=== PATIENT | male | born 1945 | race Caucasian/White ===

== ENCOUNTER 2023-02-05 08:13 | Day surgery (SDC) | payer MEDICARE, OTHER ==
[~2023-02-05] VITALS: Ht 175.3 cm; Wt 110.0 kg
[~2023-02-05 08:13] MED LIST: CLOP75 PO; Crestor40 MG PO; FISH OIL 1,2001 EAC7 PO; FURO40 PO; GLIP10 PO; HUMULIN N100 UNIT/4 SC; LISI5 PO; METF500 PO; PANT20 PO; Vitamin C100 M1 PO; WARF5 PO
--- NOTE | 2023-02-05 08:42 | NUR ---
History, Chart, Medications and Allergies reviewed before start of procedure. Pre-Op teaching done. Pt verbalizes understanding. Patient confirms NPO status and agrees with scheduled surgery. Patient states colon prep results translucent yellow without sediment. Patient States Post-Procedure ride home has been arranged.
[2023-02-05 08:47] VITALS: BP 121/68
--- NOTE | 2023-02-05 09:42 | NUR ---
02/05/23 0942 Mary Jimenez HISTORY, CHART, MEDICATIONS AND ALLERGIES REVIEWED BEFORE START OF PROCEDURE. PATIENT CONFIRMS NPO STATUS AND AGREES WITH SCHEDULED PROCEDURE. 3-LEAD EKG REVIEWED WITH PHYSICIAN PRIOR TO START OF PROCEDURE. MONITOR INTACT WITH CONTINUOUS PULSE OXIMETRY,CAPNOGRAPHY, 3-LEAD EKG, INTERMITTENT BP. SUPPLEMENTAL O2 TO BE TITRATED THROUGHOUT PROCEDURE TO MAINTAIN O2 SATURATION ABOVE 90%. PATIENT DETERMINED TO BE ASA APPROPRIATE FOR PROPOFOL SEDATION PRIOR TO START OF PROCEDURE BY
[2023-02-05 10:05] VITALS: BP 130/82
--- NOTE | 2023-02-05 10:09 | NUR ---
REPORT RECEIVED FROM CARINE VANCE RN. VSS. PT ABLE TO REPOSITION SELF IN BED. PT REQUESTING PO FLUIDS AND TOLERATING THEM WELL. PT DENIES PAIN, NAUSEA, OR DISCOMFORT. AT BEDSIDE.
[2023-02-05 10:18] VITALS: BP 128/85
--- NOTE | 2023-02-05 10:34 | NUR ---
Patient up to Ambulate independently. Gait steady. VSS. Discharge instructions reviewed with patient. Patient verbalizes understanding. Copy given to patient to take home. Patient States Post-Procedure ride home has been arranged. Discharged via PERSONAL wheelchair to private car for ride home WITH DISCHARGE VOLUNTEER. PT BELONGINGS RETURNED TO PT.
== END 2023-02-05 10:37 | disposition home or self-care (01) ==
LOC: ORSCMMR 08:13 → ORD 09:00 → ORSCMMR 09:00
PROVIDERS: Internal Medicine Gastroenterology
PROC: 0DBN8ZX Excision of Sigmoid Colon, Via Natural or Artificial Opening Endoscopic, Diagnostic (ICD-10-PCS; principal; 2023-02-05 09:00)
PROC: 0DBP8ZX Excision of Rectum, Via Natural or Artificial Opening Endoscopic, Diagnostic (ICD-10-PCS; principal; 2023-02-05 09:00)
DX: K62.5 Hemorrhage of anus and rectum (principal); C20 Malignant neoplasm of rectum; K63.5 Polyp of colon; E11.9 Type 2 diabetes mellitus without complications; K21.9 Gastro-esophageal reflux disease without esophagitis; I10 Essential (primary) hypertension; E78.00 Pure hypercholesterolemia, unspecified; Z95.0 Presence of cardiac pacemaker; I25.10 Atherosclerotic heart disease of native coronary artery without angina pectoris; Z86.718 Personal history of other venous thrombosis and embolism; Z79.02 Long term (current) use of antithrombotics/antiplatelets; Z79.01 Long term (current) use of anticoagulants; Z79.84 Long term (current) use of oral hypoglycemic drugs; Z79.899 Other long term (current) drug therapy
CPT/HCPCS: 82947; 88305; J2250; J2704; J3010; J7120

== ENCOUNTER → 2023-06-07 | Outpatient (CLI) | payer MEDICARE, OTHER ==
[2023-06-07 17:33] LABS: Appearance, Urine Clear (Clear); Bilirubin, Urine Neg (Neg); Blood, Urine 1+ (Neg); Color, Urine Yellow (P-Yellow); Glucose Qualitative, Urine 4+ (Neg); Ketones, Urine Neg (Neg); Leukocyte Esterase, Urine Neg (Neg); Nitrite, Urine Neg (Neg); Protein, Urine 2+ (Neg); Specific Gravity, Urine 1.015 (1.003-1.022); Urobilinogen, Urine NORM (Normal)
[2023-06-07 17:45] LABS: Bacteria Rare /hpf; Squamous Epithelial Cells Rare /hpf (Few)
[2023-06-07 17:46] LABS: Hyaline Casts 0-2 /lpf (0-2)
== END ==
LOC: LAB SHORT 15:00 → LAB 15:00
PROVIDERS: Radiology Radiation Oncology
DX: Z51.0 Encounter for antineoplastic radiation therapy (principal); C20 Malignant neoplasm of rectum
CPT/HCPCS: 81001

== ENCOUNTER → 2023-07-02 | Outpatient (CLI) | payer MEDICARE, OTHER | LOC: LAB SHORT 12:00 → LAB 12:00 | DX: R30.0 Dysuria (principal) | CPT/HCPCS: 87086 ==

== ENCOUNTER 2023-10-15 16:24 | Emergency (ER) | payer MEDICARE, OTHER ==
[~2023-10-15] VITALS: Ht 182.9 cm; Wt 65.8 kg
[2023-10-15 20:38] LABS: BASOPHILS ABSOLUTE AUTO 0.07 K/mm3 (0.00-0.23); BASOPHILS PERCENT AUTO 1 % (0-2); EOSINOPHILS ABSOLUTE AUTO 0.24 K/mm3 (0.00-0.68); EOSINOPHILS PERCENT AUTO 3 % (0-6); Hematocrit 40.8 % (37.0-53.0); Hemoglobin 14.7 g/dL (13.5-17.5); IMMATURE GRAN ABSOLUTE AUTO 0.04 K/mm3 (0.00-0.10); IMMATURE GRAN PERCENT AUTO 1 % (0-1); LYMPHOCYTES ABSOLUTE AUTO 1.08 K/mm3 (0.84-5.20); LYMPHOCYTES PERCENT AUTO 13 % (21-46); MONOCYTES ABSOLUTE AUTO 0.82 K/mm3 (0.16-1.47); MONOCYTES PERCENT AUTO 10 % (4-13); Mean Corpuscular HGB 33.5 pg (26.0-34.0); Mean Corpuscular Volume 93 fL (80-100); Mean Platelet Volume 10.3 fL (9.1-12.4); NEUTROPHILS ABSOLUTE AUTO 6.41 K/mm3 (1.96-9.15); NEUTROPHILS PERCENT AUTO 74 % (41-73); Platelet Count 221 K/mm3 (150-400); RDW Coefficient Variation 13.2 % (11.7-14.2); RDW Standard Deviation 45.1 fL (35.1-46.3); Red Blood Cell Count 4.39 M/mm3 (4.30-5.90); White Blood Cell Count 8.66 K/mm3 (4.00-11.30)
[2023-10-15 20:51] LABS: Albumin, Blood 3.9 g/dL (3.4-5.0); Bilirubin, Total 0.4 mg/dL (0.1-1.0); Bun/Creatinine Ratio 32.4 (12.0-20.0); Calcium, Blood 9.2 mg/dL (8.5-10.1); Creatinine, Blood 0.99 mg/dL (0.60-1.20); Potassium, Blood 3.9 mmol/L (3.5-5.5); Total Protein, Blood 7.9 g/dL (6.4-8.2)
[2023-10-15 22:24] VITALS: BP 138/91
== END 2023-10-15 22:25 | disposition home or self-care (01) ==
LOC: ER 16:24
PROVIDERS: Physician Assistant
DX: I44.7 Left bundle-branch block, unspecified (principal); Z79.02 Long term (current) use of antithrombotics/antiplatelets; Z79.4 Long term (current) use of insulin; Z79.84 Long term (current) use of oral hypoglycemic drugs; Z79.899 Other long term (current) drug therapy; Z95.0 Presence of cardiac pacemaker; I10 Essential (primary) hypertension; E11.9 Type 2 diabetes mellitus without complications; K21.9 Gastro-esophageal reflux disease without esophagitis
CPT/HCPCS: 71046; 80053; 84484; 85025; 93005; 93010; 99285-25

== ENCOUNTER → 2023-10-15 | Outpatient (CLI) | payer MEDICARE, OTHER | END | disposition home or self-care (01) | LOC: LAB SHORT 15:00 → LAB 15:00 | DX: R06.00 Dyspnea, unspecified (principal) ==

== ENCOUNTER → 2023-12-12 | Outpatient (CLI) | payer MEDICARE, OTHER ==
[~2023-12-12] MED LIST changes: +ENOX30I
[2023-12-12 19:24] LABS: Albumin, Blood 3.7 g/dL (3.4-5.0); Albumin/Globulin Ratio 0.9 (0.8-1.8); Bilirubin, Total 0.4 mg/dL (0.1-1.0); Bun/Creatinine Ratio 26.8 (12.0-20.0); Calcium, Blood 8.7 mg/dL (8.5-10.1); Creatinine, Blood 0.97 mg/dL (0.60-1.20); Globulin, Blood 3.9 g/dL (2.2-4.0); Potassium, Blood 3.5 mmol/L (3.5-5.5); Total Protein, Blood 7.6 g/dL (6.4-8.2)
== END | disposition home or self-care (01) ==
LOC: LAB SHORT 18:30 → LAB 18:30
PROVIDERS: Physician Assistant
DX: Z51.81 Encounter for therapeutic drug level monitoring (principal); Z79.899 Other long term (current) drug therapy
CPT/HCPCS: 80053

== ENCOUNTER 2024-05-21 02:46 | Emergency (ER) | payer MEDICARE, OTHER ==
[~2024-05-21] VITALS: Ht 182.9 cm; Wt 106.6 kg
[2024-05-21 03:50] LABS: BASOPHILS ABSOLUTE AUTO 0.06 K/mm3 (0.00-0.23); BASOPHILS PERCENT AUTO 1 % (0-2); EOSINOPHILS ABSOLUTE AUTO 0.04 K/mm3 (0.00-0.68); EOSINOPHILS PERCENT AUTO 0 % (0-6); Hematocrit 42.9 % (37.0-53.0); Hemoglobin 15.4 g/dL (13.5-17.5); IMMATURE GRAN ABSOLUTE AUTO 0.03 K/mm3 (0.00-0.10); IMMATURE GRAN PERCENT AUTO 0 % (0-1); LYMPHOCYTES ABSOLUTE AUTO 0.94 K/mm3 (0.84-5.20); LYMPHOCYTES PERCENT AUTO 10 % (21-46); MONOCYTES ABSOLUTE AUTO 0.87 K/mm3 (0.16-1.47); MONOCYTES PERCENT AUTO 10 % (4-13); Mean Corpuscular HGB Conc 35.9 g/dL (31.5-36.5); Mean Corpuscular Volume 92 fL (80-100); Mean Platelet Volume 10.6 fL (9.1-12.4); NEUTROPHILS ABSOLUTE AUTO 7.24 K/mm3 (1.96-9.15); NEUTROPHILS PERCENT AUTO 79 % (41-73); Platelet Count 253 K/mm3 (150-400); RDW Coefficient Variation 13.5 % (11.7-14.2); RDW Standard Deviation 46.1 fL (35.1-46.3); Red Blood Cell Count 4.66 M/mm3 (4.30-5.90); White Blood Cell Count 9.18 K/mm3 (4.00-11.30)
[2024-05-21 04:31] LABS: Albumin, Blood 4.1 g/dL (3.4-5.0); Albumin/Globulin Ratio 0.9 (0.8-1.8); Bilirubin, Total 0.7 mg/dL (0.1-1.0); Bun/Creatinine Ratio 27.9 (12.0-20.0); Creatinine, Blood 1.29 mg/dL (0.60-1.20); Globulin, Blood 4.6 g/dL (2.2-4.0); Total Protein, Blood 8.7 g/dL (6.4-8.2)
[2024-05-21] MEDS ORDERED: Methocarbamol 500 MG Tab PO ONE (06:20)
[2024-05-21] MEDS ORDERED: Methyl Salicylate/Menth/Camph 57 GM TUBE TOP ONE (06:20)
[2024-05-21] MEDS ORDERED: Acetaminophen 500 MG Tab PO ONE (06:20)
[2024-05-21] MEDS ORDERED: PredniSONE 20 MG Tab PO ONE (06:25)
[2024-05-21] MEDS ORDERED: OxyCODONE HCL 5 MG TAB PO ONE (06:25)
[2024-05-21 06:58] LABS: Prothrombin Time Results 43.4 Sec (9.7-11.5)
[2024-05-21 07:06] LABS: International Normalized Ratio 4.54
[2024-05-21] MEDS ORDERED: Phytonadione 5 MG Tab PO ONE (07:25)
[2024-05-21] MEDS ORDERED: PRED20 PO (07:49)
[2024-05-21] MEDS ORDERED: OXYC5 PO (07:49)
[2024-05-21 08:00] VITALS: BP 133/94
== END 2024-05-21 08:07 | disposition home or self-care (01) ==
LOC: ER 02:46
PROVIDERS: Student in an Organized Health Care Education/Training Program
DX: M75.21 Bicipital tendinitis, right shoulder (principal); R79.1 Abnormal coagulation profile; E11.9 Type 2 diabetes mellitus without complications; K21.9 Gastro-esophageal reflux disease without esophagitis; I11.0 Hypertensive heart disease with heart failure; I50.20 Unspecified systolic (congestive) heart failure; E78.5 Hyperlipidemia, unspecified; Z79.02 Long term (current) use of antithrombotics/antiplatelets; Z79.84 Long term (current) use of oral hypoglycemic drugs; Z79.4 Long term (current) use of insulin; Z79.899 Other long term (current) drug therapy
CPT/HCPCS: 71046; 73030; 80053; 84484; 85025; 85610; 93005; 93010; 99284-25; A9270; J7512

== ENCOUNTER 2024-09-10 03:17 | Inpatient (IN) | payer MEDICARE, OTHER ==
[~2024-09-10] VITALS: Ht 180.3 cm; Wt 107.9 kg
[~2024-09-10 03:17] MED LIST changes: +LOSA25 PO; +OXYC5 PO; +PRED20 PO; +TOPROL XL25 MG PO; +TORSE20 PO
[2024-09-10 04:10] LABS: BASOPHILS ABSOLUTE AUTO 0.06 K/mm3 (0.00-0.23); BASOPHILS PERCENT AUTO 1 % (0-2); EOSINOPHILS ABSOLUTE AUTO 0.04 K/mm3 (0.00-0.68); EOSINOPHILS PERCENT AUTO 1 % (0-6); Hematocrit 21.6 % (37.0-53.0); Hemoglobin 7.2 g/dL (13.5-17.5); IMMATURE GRAN ABSOLUTE AUTO 0.03 K/mm3 (0.00-0.10); IMMATURE GRAN PERCENT AUTO 0 % (0-1); LYMPHOCYTES ABSOLUTE AUTO 0.92 K/mm3 (0.84-5.20); LYMPHOCYTES PERCENT AUTO 12 % (21-46); MONOCYTES ABSOLUTE AUTO 0.55 K/mm3 (0.16-1.47); MONOCYTES PERCENT AUTO 7 % (4-13); Mean Corpuscular HGB 29.9 pg (26.0-34.0); Mean Corpuscular HGB Conc 33.3 g/dL (31.5-36.5); Mean Corpuscular Volume 90 fL (80-100); Mean Platelet Volume 9.9 fL (9.1-12.4); NEUTROPHILS ABSOLUTE AUTO 6.19 K/mm3 (1.96-9.15); NEUTROPHILS PERCENT AUTO 79 % (41-73); Platelet Count 304 K/mm3 (150-400); Red Blood Cell Count 2.41 M/mm3 (4.30-5.90); White Blood Cell Count 7.79 K/mm3 (4.00-11.30)
[2024-09-10 04:43] LABS: Albumin, Blood 3.7 g/dL (3.4-5.0); Albumin/Globulin Ratio 1.1 (0.8-1.8); Bilirubin, Total 0.7 mg/dL (0.1-1.0); Bun/Creatinine Ratio 27.4 (12.0-20.0); Calcium, Blood 8.4 mg/dL (8.5-10.1); Creatinine, Blood 1.24 mg/dL (0.60-1.20); Globulin, Blood 3.3 g/dL (2.2-4.0); Magnesium, Blood 1.8 mg/dL (1.6-2.4); Phosphorus, Blood 2.9 mg/dL (2.5-4.9); Potassium, Blood 4.4 mmol/L (3.5-5.5)
[2024-09-10 04:53] LABS: International Normalized Ratio 2.73; Prothrombin Time Results 27.1 Sec (9.7-11.5)
[2024-09-10] MEDS ORDERED: Acetaminophen 325 MG TABLET PO PRN (05:25)
[2024-09-10] MEDS ORDERED: Ondansetron HCl 2 MG / ML 2ML Vial IV PRN (05:25)
[2024-09-10] MEDS ORDERED: FLU VACC TS2024-25(6MOS UP)/PF 45 MCG/0.5 ML SYRINGE IM ONE (05:25)
[2024-09-10] MEDS ORDERED: Pantoprazole Sodium 20 MG Tab PO SCH (06:00)
[2024-09-10] MEDS ORDERED: Insulin Regular 100 UNIT/ML 10ML Vial SC SCH (06:00)
[2024-09-10] MEDS ORDERED: Cyclobenzaprine HCl 10 MG Tab PO ONE (06:50)
[2024-09-10] MEDS ORDERED: Losartan Potassium 25 MG Tab PO SCH (09:00)
[2024-09-10] MEDS ORDERED: Torsemide 20 MG TAB PO SCH (09:00)
[2024-09-10] MEDS ORDERED: Atorvastatin 40 MG Tab PO SCH (09:00)
[2024-09-10] MEDS ORDERED: Metoprolol Succinate 25 MG TABCR PO SCH (09:00)
[2024-09-10] MEDS ORDERED: Polyethylene Glycol 3350 17 gm PO ONE (10:00)
[2024-09-10 12:19] LABS: Source, Urine Clean Catch
[2024-09-10 12:22] LABS: Appearance, Urine Clear (Clear); Bilirubin, Urine Neg (Neg); Blood, Urine Neg (Neg); Color, Urine Yellow (P-Yellow); Glucose Qualitative, Urine 4+ (Neg); Ketones, Urine Neg (Neg); Leukocyte Esterase, Urine Neg (Neg); Nitrite, Urine Neg (Neg); Protein, Urine 1+ (Neg); Urobilinogen, Urine NORM (Normal)
[2024-09-10] MEDS ORDERED: ePHEDrine Sulfate 50 MG/ML 1ML Injection IV ONE (16:22)
[2024-09-10 16:41] VITALS: BP 122/61
[2024-09-10] MEDS ORDERED: Peg/Electrolytes 4,000 ML BTL PO ONE (17:00)
[2024-09-10 17:03] LABS: Hematocrit 19.6 % (37.0-53.0); Hemoglobin 6.6 g/dL (13.5-17.5); Mean Corpuscular HGB 30.1 pg (26.0-34.0); Mean Corpuscular HGB Conc 33.7 g/dL (31.5-36.5); Mean Corpuscular Volume 90 fL (80-100); Platelet Count 286 K/mm3 (150-400); RDW Standard Deviation 46.1 fL (35.1-46.3); Red Blood Cell Count 2.19 M/mm3 (4.30-5.90); White Blood Cell Count 6.92 K/mm3 (4.00-11.30)
--- NOTE | 2024-09-10 18:30 | NUR ---
ADMISSION AND SHIFT SUMMARY PATIENT ADMITTED TO MEDICAL FLOOR FOR GI BLEED. PATIENT TO HAVE EGD TOMORROW. PATIENT ALERT BUT EASILY FALLING ASLEEP DURING ASSESSMENT. GIRLFRIEND AT BEDSIDE ASSISTING WITH ANSWERING SOME QUESTIONS. PATENT NOTED TO HAVE A WOUND ON L GREAT TOE. PATIENT STATES THAT [facility] IS MANAGING WOUND CARE TO TOE. PATIENT ALSO NOTED TO HAVE A PURPLE BLISTER ON R GREAT TOE. PATIENT STATES THIS IS NEW TO HIM. PROVIDED EDUCATION RELATED TO DM AND FOOT CARE. PATIENT STARTED ON GOLYTLY.
[2024-09-10] MEDS ORDERED: NS 500 ML BAG IV SCH (19:50)
[2024-09-10 21:15] VITALS: BP 104/55
[2024-09-10 21:23] VITALS: BP 104/55
[2024-09-10] MEDS ORDERED: NS 500 ML IV SCH (22:10)
[2024-09-10 22:38] VITALS: BP 115/54
[2024-09-10 23:31] VITALS: BP 101/59
[2024-09-10 23:38] VITALS: BP 101/59
[2024-09-11] VITALS (7 sets, daily range): BP systolic 85–126; BP diastolic 48–79
[2024-09-11 02:22] LABS: Hematocrit 21.4 % (37.0-53.0); Hemoglobin 7.2 g/dL (13.5-17.5); Mean Corpuscular HGB 29.6 pg (26.0-34.0); Mean Corpuscular HGB Conc 33.6 g/dL (31.5-36.5); Mean Corpuscular Volume 88 fL (80-100); Mean Platelet Volume 9.7 fL (9.1-12.4); Platelet Count 257 K/mm3 (150-400); RDW Coefficient Variation 13.9 % (11.7-14.2); RDW Standard Deviation 44.4 fL (35.1-46.3); Red Blood Cell Count 2.43 M/mm3 (4.30-5.90); White Blood Cell Count 6.68 K/mm3 (4.00-11.30)
[2024-09-11 02:35] LABS: Albumin, Blood 3.2 g/dL (3.4-5.0); Anion Gap 9 mmol/L (3-11); Blood Urea Nitrogen 28 mg/dL (8-24); CO2, Blood 26 mmol/L (21-32); Calcium, Blood 8.2 mg/dL (8.5-10.1); Chloride, Blood 106 mmol/L (98-108); Creatinine, Blood 1.27 mg/dL (0.60-1.20); Glomerular Filtration Rate 59 (60-); Glucose, Blood 239 mg/dL (70-99); Magnesium, Blood 1.7 mg/dL (1.6-2.4); Phosphorus, Blood 2.7 mg/dL (2.5-4.9); Potassium, Blood 3.5 mmol/L (3.5-5.5); Sodium, Blood 137 mmol/L (136-145)
--- NOTE | 2024-09-11 03:14 | NUR ---
NOTED: TERRAZZO WORKER CALLS CONCERNING PT HAVING A CHANGE IN RHYTHM. PT CURRNTLY WITH 100 PERCENT VENTRICLE PACING WITH OCCASSIONAL ATRIAL PACING. QUESTIONALABLE ST ELEVATION. PT ASYMPTOMATIC. PT IN PROCESS OF BOWEL PREP. AM LABS DRAWN EARLY. EKG DONE. DR EDMOND COMES TO UNIT AND CHECKS EKG, AND LABS. NO ST ELEVATION PER DR EDMOND. INFORMATION UPDATE TO PRIMARY RN.
--- NOTE | 2024-09-11 05:41 | NUR ---
SHIFT SUMMARY PT ALERT AND ORIENTED TIMES 4 . PT ADMITTED FOR GI BLEED AND SYMPTOMATIC ANEMIA. PT IS ON TELE SINUS RHYTHM 74 PT TAKES MEDS WHOLE WITH WATER, IS RECEPTIVE TO CARE. PT S IS AT BEDSIDE. PT IS NPO (CAN HAVE ICE CHIPS AND WATER ONLY) FOR COLONOSCOPY THIS AFTERNOON. PT WAS GIVEN 1 UNIT PACKED RED BLOOD CELLS.NEW LABS OBTAINED TWO HOURS AFTER BLOOD GIVEN. PT HAS WOUNDS ON LEFT GREAT TOE (PICTURES IN CHART) DRESSING CHANGED AND SMALL WOUND ON FIFTH TOE, DRESSING CHANGED. PT TOLERATED WELL. PT USES FORWARD WALKER WITH ASSIST. PT IS RECEPTIVE TO CARE. BED IN LOW POSITION, CALL LIGHT WITHIN REACH, RAILS TIMES 2.
[2024-09-11] MEDS ORDERED: Peg/Electrolytes 4,000 ML BTL PO ONE (07:00)
[2024-09-11 08:25] LABS: Hematocrit 22.4 % (37.0-53.0); Hemoglobin 7.6 g/dL (13.5-17.5); Mean Corpuscular HGB 29.7 pg (26.0-34.0); Mean Corpuscular HGB Conc 33.9 g/dL (31.5-36.5); Mean Corpuscular Volume 88 fL (80-100); Mean Platelet Volume 9.8 fL (9.1-12.4); Platelet Count 282 K/mm3 (150-400); RDW Coefficient Variation 13.8 % (11.7-14.2); RDW Standard Deviation 44.3 fL (35.1-46.3); Red Blood Cell Count 2.56 M/mm3 (4.30-5.90); White Blood Cell Count 7.81 K/mm3 (4.00-11.30)
[2024-09-11] MEDS ORDERED: Lactated Ringer's 1,000 ML IV SCH ×2 (08:25→13:40)
--- NOTE | 2024-09-11 14:03 | NUR ---
PT HAS 20G IV TO LEFT AC THAT FLUSHES AND FLOWS WELL TO GRAVITY.
--- NOTE | 2024-09-11 14:10 | NUR ---
1355: PT BROUGHT FROM FLOOR TO DAY SURGERY FOR PROCEDURE WITH DR BRAY. History, Chart, Medications and Allergies reviewed before start of procedure. Lungs clear T/O to Auscultation. Patient confirms NPO status and agrees with scheduled surgery. Pre-Op teaching done. Pt verbalizes understanding. PT BELONGINGS LEFT IN PERSONAL ROOM ON MEDICAL FLOOR FOR SAFEKEEPING.
--- NOTE | 2024-09-11 14:12 | NUR ---
09/11/24 1412 Bella Saenz History, Chart, Medications and Allergies reviewed before start of procedure.MONITOR INTACT WITH CONTINUOUS PULSE OXIMETRY, CONTINUOUS END TITAL CO2, 3-LEAD EKG AND INTERMITTENT BLOOD PRESSURE.3-LEAD EKG REVIEWED WITH PHYSICIAN PRIOR TO START OF PROCEDURE.O2 VIA POM INTACT THROUGHOUT SEDATION/PROCEDURE.GILL DASILVA CRNA PROVIDING ANESTHESIA-SEE ANESTHESIA RECORD.
[2024-09-11] MEDS ORDERED: EpiNEPhrine 1 MG/1 ML 1ML Vial ONE (14:51)
[2024-09-11] MEDS ORDERED: Lactated Ringer's 1,000 ML IV ONE (15:02)
--- NOTE | 2024-09-11 16:58 | NUR ---
DROWZY FROM COLONSCOPY, HELPFUL AT BEDSIDE, VSS, MAKES NEEDS KNOWN, CALL LIGHT WITH IN REACH, WILL RELAY TO PM RN
--- NOTE | 2024-09-11 19:23 | NUR ---
REPORTED DYSPHAGIA TO DR MILLAN PATIENT WENT TO CT FOR HEAD SCAN, REPORTED TO NAILA ZAVALA
[2024-09-12] VITALS (11 sets, daily range): BP systolic 98–135; BP diastolic 53–89
[2024-09-12 06:42] LABS: Hematocrit 21.3 % (37.0-53.0); Hemoglobin 6.9 g/dL (13.5-17.5); Mean Corpuscular HGB 29.1 pg (26.0-34.0); Mean Corpuscular HGB Conc 32.4 g/dL (31.5-36.5); Mean Corpuscular Volume 90 fL (80-100); Mean Platelet Volume 10.3 fL (9.1-12.4); Platelet Count 298 K/mm3 (150-400); RDW Coefficient Variation 14.3 % (11.7-14.2); RDW Standard Deviation 46.4 fL (35.1-46.3); Red Blood Cell Count 2.37 M/mm3 (4.30-5.90); White Blood Cell Count 8.54 K/mm3 (4.00-11.30)
[2024-09-12 07:02] LABS: Albumin, Blood 3.3 g/dL (3.4-5.0); Anion Gap 11 mmol/L (3-11); Blood Urea Nitrogen 18 mg/dL (8-24); Bun/Creatinine Ratio 15.3 (12.0-20.0); CO2, Blood 26 mmol/L (21-32); Calcium, Blood 8.5 mg/dL (8.5-10.1); Chloride, Blood 104 mmol/L (98-108); Creatinine, Blood 1.18 mg/dL (0.60-1.20); Glomerular Filtration Rate 64 (60-); Glucose, Blood 222 mg/dL (70-99); Magnesium, Blood 1.6 mg/dL (1.6-2.4); Phosphorus, Blood 2.5 mg/dL (2.5-4.9); Potassium, Blood 3.5 mmol/L (3.5-5.5); Sodium, Blood 137 mmol/L (136-145)
--- NOTE | 2024-09-12 07:17 | NUR ---
SHIFT SUMMARY; PATIENT SLEPT IN LONG INTERVALS, IN ROOM. TELE V PACED @ 70. DID NOT NEED ANY PRN MEDS. LOW BP'S NOTED. NO RECTAL BLEEDING.
[2024-09-12 07:30] LABS: International Normalized Ratio 1.39; Prothrombin Time Results 14.5 Sec (9.7-11.5)
--- NOTE | 2024-09-12 18:03 | NUR ---
ALERT AND OREINTED X3, DYSPHAGIA COMES AND GOES, PATIENT HARD TO REDIRECT AT TIMES, ONE UNIT PRBC INFUSED, REPEAT H&H AT 1700, 98% ON RA, CALL LIGHT WITH IN REACH
[2024-09-13 00:17] VITALS: BP 120/76
[2024-09-13 04:36] VITALS: BP 113/64
--- NOTE | 2024-09-13 05:21 | NUR ---
SHIFT SUMMARY PT ALERT AND ORIENTED TIMES 4 .. PT USES FORWARD WALKER WITH ASSIST. PT IS RECEPTIVE TO CARE. PT ASKING ABOUT HIS DISCHARGE DATE, PT USED URINAL APPEARED TO SLEEP ON AND OFF THROUGH THE NIGHT. BED IN LOW POSITION, CALL LIGHT WITHIN REACH, RAILS TIMES 2.
[2024-09-13 07:53] VITALS: BP 137/69
[2024-09-13 07:55] LABS: Mean Corpuscular HGB 29.3 pg (26.0-34.0); Mean Corpuscular HGB Conc 33.3 g/dL (31.5-36.5); Mean Corpuscular Volume 88 fL (80-100); Mean Platelet Volume 9.8 fL (9.1-12.4); Platelet Count 249 K/mm3 (150-400); RDW Coefficient Variation 14.4 % (11.7-14.2); RDW Standard Deviation 45.3 fL (35.1-46.3); Red Blood Cell Count 2.39 M/mm3 (4.30-5.90); White Blood Cell Count 6.43 K/mm3 (4.00-11.30)
[2024-09-13 11:33] VITALS: BP 100/64
[2024-09-13 14:21] LABS: Hematocrit 21.2 % (37.0-53.0); Hemoglobin 7.1 g/dL (13.5-17.5); Mean Corpuscular HGB 29.6 pg (26.0-34.0); Mean Corpuscular HGB Conc 33.5 g/dL (31.5-36.5); Mean Corpuscular Volume 88 fL (80-100); Mean Platelet Volume 9.8 fL (9.1-12.4); Platelet Count 249 K/mm3 (150-400); RDW Coefficient Variation 14.3 % (11.7-14.2); White Blood Cell Count 6.74 K/mm3 (4.00-11.30)
[2024-09-13 15:27] VITALS: BP 117/67
--- NOTE | 2024-09-13 17:55 | NUR ---
9819 DISCHARGED HOME, REPORT TO PATIENT AND ON THE PHONE, PATIENT DEFINATE HE IS DRIVING HOME, BOTH STATED UNDERSTANDING OF INSTRUCTIONS MEDICATIONS, AND FOLLOW UP
== END 2024-09-13 17:37 | disposition home or self-care (01) | DRG 378 ==
LOC: ER 03:17 → ERHOLD 05:21 → MEDS 05:21
PROVIDERS: Emergency Medicine; Internal Medicine; Internal Medicine Gastroenterology; ADMIT Student in an Organized Health Care Education/Training Program
PROC: 30233N1 Transfusion of Nonautologous Red Blood Cells into Peripheral Vein, Percutaneous Approach (ICD-10-PCS; 2024-09-10)
PROC: 0W3P8ZZ Control Bleeding in Gastrointestinal Tract, Via Natural or Artificial Opening Endoscopic (ICD-10-PCS; principal; 2024-09-11 14:00)
DX: K55.21 Angiodysplasia of colon with hemorrhage (principal); D62 Acute posthemorrhagic anemia; I50.22 Chronic systolic (congestive) heart failure; I13.0 Hypertensive heart and chronic kidney disease with heart failure and stage 1 through stage 4 chronic kidney disease, or unspecified chronic kidney disease; Q43.8 Other specified congenital malformations of intestine; N18.30 Chronic kidney disease, stage 3 unspecified; E11.22 Type 2 diabetes mellitus with diabetic chronic kidney disease; K21.9 Gastro-esophageal reflux disease without esophagitis; E11.65 Type 2 diabetes mellitus with hyperglycemia; I25.10 Atherosclerotic heart disease of native coronary artery without angina pectoris; Z79.01 Long term (current) use of anticoagulants; Z86.718 Personal history of other venous thrombosis and embolism; Z86.711 Personal history of pulmonary embolism; Z79.84 Long term (current) use of oral hypoglycemic drugs; Z79.4 Long term (current) use of insulin; Z79.02 Long term (current) use of antithrombotics/antiplatelets; Z95.5 Presence of coronary angioplasty implant and graft; Z95.0 Presence of cardiac pacemaker; Z95.1 Presence of aortocoronary bypass graft; Z85.048 Personal history of other malignant neoplasm of rectum, rectosigmoid junction, and anus
CPT/HCPCS: 36415; 36430; 70450; 71045; 80053; 80069; 82947; 83605; 83735; 84100; 84484; 85018; 85025; 85027; 85610; 85730; 86850; 86900; 86901; 86923; 93005; 93010; 99285-25; A9270; J0171; J1815; J2470; J7120; P9016

== ENCOUNTER 2024-09-25 21:24 | Inpatient (IN) | payer MEDICARE, OTHER ==
[~2024-09-25] VITALS: Ht 182.9 cm; Wt 88.5 kg
[~2024-09-25 21:24] MED LIST changes: +FISH OIL 1,0001 EA10 PO; -FISH OIL 1,2001 EAC7 PO
[2024-09-25 21:44] LABS: BASOPHILS ABSOLUTE AUTO 0.06 K/mm3 (0.00-0.23); BASOPHILS PERCENT AUTO 1 % (0-2); EOSINOPHILS PERCENT AUTO 1 % (0-6); Hematocrit 30.1 % (37.0-53.0); Hemoglobin 9.7 g/dL (13.5-17.5); IMMATURE GRAN ABSOLUTE AUTO 0.05 K/mm3 (0.00-0.10); IMMATURE GRAN PERCENT AUTO 1 % (0-1); LYMPHOCYTES PERCENT AUTO 11 % (21-46); MONOCYTES ABSOLUTE AUTO 0.96 K/mm3 (0.16-1.47); MONOCYTES PERCENT AUTO 10 % (4-13); Mean Corpuscular HGB 28.3 pg (26.0-34.0); Mean Corpuscular HGB Conc 32.2 g/dL (31.5-36.5); Mean Corpuscular Volume 88 fL (80-100); Mean Platelet Volume 10.3 fL (9.1-12.4); NEUTROPHILS ABSOLUTE AUTO 7.57 K/mm3 (1.96-9.15); NEUTROPHILS PERCENT AUTO 77 % (41-73); Platelet Count 345 K/mm3 (150-400); RDW Coefficient Variation 13.6 % (11.7-14.2); RDW Standard Deviation 43.9 fL (35.1-46.3); Red Blood Cell Count 3.43 M/mm3 (4.30-5.90); White Blood Cell Count 9.84 K/mm3 (4.00-11.30)
[2024-09-25 22:07] LABS: Albumin, Blood 3.8 g/dL (3.4-5.0); Albumin/Globulin Ratio 1.1 (0.8-1.8); Bilirubin, Total 0.2 mg/dL (0.1-1.0); Bun/Creatinine Ratio 24.7 (12.0-20.0); Calcium, Blood 9.3 mg/dL (8.5-10.1); Creatinine, Blood 1.46 mg/dL (0.60-1.20); Globulin, Blood 3.6 g/dL (2.2-4.0); Magnesium, Blood 1.7 mg/dL (1.6-2.4); Potassium, Blood 3.8 mmol/L (3.5-5.5); Total Protein, Blood 7.4 g/dL (6.4-8.2)
[2024-09-25 22:17] LABS: International Normalized Ratio 1.05; Prothrombin Time Results 11.2 Sec (9.7-11.5)
[2024-09-25] MEDS ORDERED: NS 1,000 ML IV SCH (22:25)
[2024-09-25] MEDS ORDERED: Clopidogrel Bisulfate 75 MG Tab PO ONE (22:45)
[2024-09-25] MEDS ORDERED: Aspirin 81 MG Chew PO ONE (22:45)
[2024-09-25 23:38] LABS: Influenza A, PCR NEGATIVE (NEGATIVE); Influenza B, PCR NEGATIVE (NEGATIVE); Resp Syncytial Virus, PCR NEGATIVE (NEGATIVE); SARS-Cov-2 (COVID-19) PCR, MMC NEGATIVE (NEGATIVE)
[2024-09-26] MEDS ORDERED: Acetaminophen 325 MG TABLET PO PRN (00:15)
[2024-09-26] MEDS ORDERED: Ondansetron 4 MG TAB PO PRN (00:15)
[2024-09-26 02:04] VITALS: BP 105/86
[2024-09-26] MEDS ORDERED: Sodium Bicarb 8.4% Inj 150 MEQ in Dextrose 5% 1,000 ML IV SCH (03:15)
--- NOTE | 2024-09-26 03:26 | NUR ---
PATIENT IS A NEW ADMIT FROM THE ED. AXOX 2-3, EXPRESSIVE ASPHAGIA, AND BEDREST. THREE PERSON TRANSFER FROM [facility] TO BED. ON ROOM AIR. SLURRED SPEECH. NPO. TELEMETRY PLACED AND AV PACED 73. PACEMAKER R U CHEST. PIVS INTACT. DENIES CHEST PAIN, SOB, AND N/V. VSS/AFEBRILE. RIGHT SIDE WEAKNESS IN ARM AND RIGHT SIDE TONGUE DEVIATION. SCATTER BLISTER ON RIGHT TOES AND HEALING ON LEFT TOES. REPORTED FROM SHOE/SOCK COMBO. RASH TO GROIN. CALL LIGHT IN REACH. BED IN LOWEST POSITION. WILL CONTINUE TO MONITOR UNTIL DAY SHIFT NURSE ASSUMES CARE.
[2024-09-26 03:58] LABS: Source, Urine Clean Catch
[2024-09-26 04:05] LABS: Bilirubin, Urine Neg (Neg); Blood, Urine Neg (Neg); Glucose Qualitative, Urine 3+ (Neg); Ketones, Urine Neg (Neg); Leukocyte Esterase, Urine Neg (Neg); Nitrite, Urine Neg (Neg); Protein, Urine Neg (Neg); Specific Gravity, Urine 1.015 (1.003-1.022); Urobilinogen, Urine NORM (Normal)
[2024-09-26 04:20] LABS: Appearance, Urine Clear (Clear); Color, Urine Yellow (P-Yellow)
[2024-09-26 05:36] LABS: BASOPHILS ABSOLUTE AUTO 0.06 K/mm3 (0.00-0.23); BASOPHILS PERCENT AUTO 1 % (0-2); EOSINOPHILS ABSOLUTE AUTO 0.07 K/mm3 (0.00-0.68); EOSINOPHILS PERCENT AUTO 1 % (0-6); Hematocrit 28.6 % (37.0-53.0); Hemoglobin 9.3 g/dL (13.5-17.5); IMMATURE GRAN ABSOLUTE AUTO 0.04 K/mm3 (0.00-0.10); IMMATURE GRAN PERCENT AUTO 1 % (0-1); LYMPHOCYTES ABSOLUTE AUTO 1.01 K/mm3 (0.84-5.20); LYMPHOCYTES PERCENT AUTO 12 % (21-46); MONOCYTES PERCENT AUTO 11 % (4-13); Mean Corpuscular HGB Conc 32.5 g/dL (31.5-36.5); Mean Corpuscular Volume 86 fL (80-100); Mean Platelet Volume 10.4 fL (9.1-12.4); NEUTROPHILS ABSOLUTE AUTO 6.33 K/mm3 (1.96-9.15); NEUTROPHILS PERCENT AUTO 75 % (41-73); Platelet Count 318 K/mm3 (150-400); RDW Coefficient Variation 13.8 % (11.7-14.2); RDW Standard Deviation 42.5 fL (35.1-46.3); Red Blood Cell Count 3.32 M/mm3 (4.30-5.90); White Blood Cell Count 8.41 K/mm3 (4.00-11.30)
--- NOTE | 2024-09-26 05:38 | NUR ---
PATIENT UNABLE TO FILL OUT MRI FORM AT THIS TIME. CONFUSED. WCTM.
[2024-09-26] MEDS ORDERED: Insulin Regular 100 UNIT/ML 10ML Vial SC SCH (06:00)
[2024-09-26] MEDS ORDERED: Pantoprazole Sodium 20 MG Tab PO SCH (06:00)
[2024-09-26] MEDS ORDERED: Pantoprazole Sodium 40 MG Tab PO SCH (06:00)
[2024-09-26 06:06] LABS: Alanine Aminotransfer (ALT/SGP 26 U/L (12-78); Albumin, Blood 3.6 g/dL (3.4-5.0); Albumin/Globulin Ratio 1.1 (0.8-1.8); Alk Phos 105 U/L (50-136); Anion Gap 11 mmol/L (3-11); Aspartate Aminotrans (AST/SGOT 26 U/L (12-37); Bilirubin, Total 0.4 mg/dL (0.1-1.0); Blood Urea Nitrogen 31 mg/dL (8-24); Bun/Creatinine Ratio 24.6 (12.0-20.0); CHOL/HDL RATIO 4.2; CO2, Blood 21 mmol/L (21-32); Calcium, Blood 8.8 mg/dL (8.5-10.1); Chloride, Blood 111 mmol/L (98-108); Cholesterol 123 mg/dL (50-200); Creatinine, Blood 1.26 mg/dL (0.60-1.20); Globulin, Blood 3.4 g/dL (2.2-4.0); Glomerular Filtration Rate 59 (60-); Glucose, Blood 142 mg/dL (70-99); HDL Cholesterol 29 mg/dL (>39); LDL/HDL RATIO 2.4; Low Density Lipoprotein Chol 71 mg/dL (0-110); Magnesium, Blood 1.8 mg/dL (1.6-2.4); Potassium, Blood 3.5 mmol/L (3.5-5.5); Sodium, Blood 139 mmol/L (136-145); Triglycerides 117 mg/dL (30-160); Very Low Density Lipoprot Chol 23 mg/dL (6-32)
[2024-09-26] MEDS ORDERED: Insulin NPH 100 Unit / ML 10ML Vial SC SCH (08:00)
[2024-09-26 08:04] VITALS: BP 122/84
[2024-09-26] MEDS ORDERED: Metoprolol Succinate 25 MG TABCR PO SCH (09:00)
[2024-09-26] MEDS ORDERED: Docusate Sodium 100 MG Cap PO SCH (09:00)
[2024-09-26] MEDS ORDERED: Aspirin 81 MG Chew PO SCH (09:00)
[2024-09-26] MEDS ORDERED: Clopidogrel Bisulfate 75 MG Tab PO SCH (09:00)
[2024-09-26] MEDS ORDERED: Atorvastatin 40 MG Tab PO SCH (09:00)
[2024-09-26] MEDS ORDERED: Losartan Potassium 25 MG Tab PO SCH (09:00)
[2024-09-26] MEDS ORDERED: Torsemide 20 MG TAB PO SCH (09:00)
[2024-09-26] MEDS ORDERED: Warfarin Sodium 7.5 MG Tab PO SCH (18:00)
[2024-09-26 19:54] VITALS: BP 122/71
[2024-09-26] MEDS ORDERED: Miconazole Nitrate 2% 85 GM PWD TOP PRN (21:50)
[2024-09-27 00:03] VITALS: BP 115/81
[2024-09-27 04:09] VITALS: BP 129/79
--- NOTE | 2024-09-27 04:13 | NUR ---
SHIFT SUMMARY PATIENT HAD NO ACUTE CHANGES. SLIGHT IMPROVEMENT IN SPEECH. STILL DIFFICULT TO FORM WORDS AND SENTENCES MOST OF THE TIME. TWO HEAVY ASSIST TO BSC. SITS SLUMPED OVER IN BED REPORTING HE PREFERS THIS BODY POSITION AT THIS TIME. PIV INTACT. TELE AV PACED @ 90. PUREWICK IN PLACE. CBG 156. SON CALLED FOR UPDATES. DENIES CHEST PAIN, SOB, AND N/V. VSS/AFEBRILE. CALL LIGHT IN REACH. BED IN LOWEST POSITION AND ALARM ON. WILL CONTINUE TO MONITOR UNTIL DAY SHIFT NURSE ASSUMES CARE.
[2024-09-27 06:06] LABS: Hemoglobin 10.1 g/dL (13.5-17.5); Mean Corpuscular HGB 27.5 pg (26.0-34.0); Mean Corpuscular HGB Conc 32.6 g/dL (31.5-36.5); Mean Corpuscular Volume 85 fL (80-100); Mean Platelet Volume 10.3 fL (9.1-12.4); Platelet Count 336 K/mm3 (150-400); RDW Coefficient Variation 13.8 % (11.7-14.2); RDW Standard Deviation 42.7 fL (35.1-46.3); Red Blood Cell Count 3.67 M/mm3 (4.30-5.90); White Blood Cell Count 9.27 K/mm3 (4.00-11.30)
[2024-09-27 06:18] LABS: International Normalized Ratio 1.12; Prothrombin Time Results 11.9 Sec (9.7-11.5)
[2024-09-27 06:31] LABS: Anion Gap 11 mmol/L (3-11); Blood Urea Nitrogen 28 mg/dL (8-24); Bun/Creatinine Ratio 22.6 (12.0-20.0); CO2, Blood 25 mmol/L (21-32); Calcium, Blood 9.6 mg/dL (8.5-10.1); Chloride, Blood 103 mmol/L (98-108); Creatinine, Blood 1.24 mg/dL (0.60-1.20); Glomerular Filtration Rate 60 (60-); Glucose, Blood 175 mg/dL (70-99); Magnesium, Blood 1.9 mg/dL (1.6-2.4); Phosphorus, Blood 3.7 mg/dL (2.5-4.9); Potassium, Blood 3.3 mmol/L (3.5-5.5); Sodium, Blood 136 mmol/L (136-145)
[2024-09-27 07:32] VITALS: BP 89/67
[2024-09-27] MEDS ORDERED: Potassium Chloride 20 MEQ TabCR PO ONE (07:50)
--- NOTE | 2024-09-27 13:28 | NUR ---
VISITED WITH TWO SONS, PATIENT CHOKED ON LUNCH- LARGE GRAPES AND A CHICKEN ALF, PATIENT REDIRECTED TO SLOW EATING DOWN, FOOD REMOVED FROM ROOM, WILL RE ASSESS AT DINNER, MOVEMENT IN RIGHT HAND IMPROVED FROM YESTERDAY
[2024-09-27 15:28] VITALS: BP 120/75
--- NOTE | 2024-09-27 17:46 | NUR ---
CAME AND VISITED PATIENT, WIFES SONS ACCOMPANIED HER, PATIENTS RIGHT SIDE WEAKNESS IS IMPROVING, PATEINT SUPERVIZED EATING, PATIENT EATS TO FAST, PATIENT REDIRECTED TO SLOW DOWN. FAMILY WORKING WITH CASE MANAGEMENT TO GET MORE ASSISTANCE FOR PATIENT AND AT HOME, CALL LIGHT WITH IN REACH, PURWIK IN PLACE
[2024-09-27] MEDS ORDERED: Warfarin Sodium 5 MG Tab PO SCH (18:00)
[2024-09-27 19:36] VITALS: BP 123/67
[2024-09-28] VITALS (7 sets, daily range): BP systolic 127–142; BP diastolic 66–91
--- NOTE | 2024-09-28 04:49 | NUR ---
PATIENT CONFUSED AND REACHED OVER TO SIDE BENCH FOR PERSONAL CLOTHING. NEXT CHANGED INTO STREET PANTS, SHIRT, AND HAT SETTING OFF BED ALARM. NOT ABLE TO REORIENT AT THIS TIME. REPOSTIONED WITH ALARM ACTIVATED. WCTM.
[2024-09-28 06:04] LABS: International Normalized Ratio 1.21; Prothrombin Time Results 12.8 Sec (9.7-11.5)
[2024-09-28] MEDS ORDERED: Torsemide 20 MG TAB PO PRN (12:10)
[2024-09-28] MEDS ORDERED: MetFORMIN HCl 500 mg PO SCH (17:00)
--- NOTE | 2024-09-28 17:55 | NUR ---
END OF SHIFT NOTE: FULL CODE,ON TELE, CVA UNKNOWN TYPE, PT A&O x3/4, SOME APHASIA DOES BETTER WITH YES/NO QUESTIONS, TRANSFER 2 PERSON MINIMAL ASSIST, RIGHT WRIST/UPPER ARM I.V., 2 SORES ON TOES OF EACH FOOT AND HAS BANDAIDS, STATES HE LIVES AT HOME WITH , DAUGHTER CALLED TODAY & TALKED WITH HIM. POSSIBLE DISCHARGE TOMORROW PER THERAPY RECOMMENDATIONS, FOOD SUPERVISION BUT NEED TO FOLLOWUP WITH SPEECH TO RECOMMEND FOOD SET UP INSTEAD.
[2024-09-28] MEDS ORDERED: Warfarin Sodium 7.5 MG Tab PO ONE (18:00)
--- NOTE | 2024-09-28 18:30 | NUR ---
REVIEWED SHIFT ASSESSMENT, SHIFT NOTE, CARE PLAN AND EDUCATION CHARTED BY KATHRYN BHATT, STUDENT NURSE AND I AGREE WITH HER DOCUMENTATION FOR THIS PATIENT.
[2024-09-29 00:43] VITALS: BP 115/75
[2024-09-29 04:37] VITALS: BP 133/84
[2024-09-29 06:20] LABS: BASOPHILS ABSOLUTE AUTO 0.04 K/mm3 (0.00-0.23); BASOPHILS PERCENT AUTO 0 % (0-2); EOSINOPHILS ABSOLUTE AUTO 0.19 K/mm3 (0.00-0.68); EOSINOPHILS PERCENT AUTO 2 % (0-6); Hematocrit 28.9 % (37.0-53.0); Hemoglobin 9.7 g/dL (13.5-17.5); IMMATURE GRAN ABSOLUTE AUTO 0.04 K/mm3 (0.00-0.10); IMMATURE GRAN PERCENT AUTO 0 % (0-1); LYMPHOCYTES ABSOLUTE AUTO 1.01 K/mm3 (0.84-5.20); LYMPHOCYTES PERCENT AUTO 11 % (21-46); MONOCYTES ABSOLUTE AUTO 1.07 K/mm3 (0.16-1.47); MONOCYTES PERCENT AUTO 12 % (4-13); Mean Corpuscular HGB Conc 33.6 g/dL (31.5-36.5); Mean Corpuscular Volume 84 fL (80-100); Mean Platelet Volume 10.6 fL (9.1-12.4); NEUTROPHILS ABSOLUTE AUTO 6.63 K/mm3 (1.96-9.15); NEUTROPHILS PERCENT AUTO 74 % (41-73); Platelet Count 320 K/mm3 (150-400); RDW Coefficient Variation 13.7 % (11.7-14.2); RDW Standard Deviation 41.8 fL (35.1-46.3); Red Blood Cell Count 3.46 M/mm3 (4.30-5.90); White Blood Cell Count 8.98 K/mm3 (4.00-11.30)
--- NOTE | 2024-09-29 06:20 | NUR ---
SUMMARY: PT A/OX4, IS ABLE TO SPECIFY NEEDS WHEN STAFF IN ROOM AND IS PLEASANT AND COOPERATIVE W/CARE. HE HAS MILD EXPRESSIVE APHASIA W/SLIGHTLY DELAYED SPEECH AND IS OBSERVED SEARCHING FOR WORDS AT TIMES. R.ARM WEAKNESS PERSISTS W/DECREASED ROM BUT RLE STRENGTH APPEARS EQUAL AND INTACT. PUREWIC IS IN PLACE FOR URINARY FREQUENCY W/URGENCY AND ATTENDS CHANGED PRN. PT REPOSITIONS SELF IN BED AND IS UP W/2PA. HE HAS BANDAGES INTACT TO SORES ON BILAT TOES W/END OF BED PADDED FOR FIGITING AND RESTLESSNESS. PT IS V-PACED ON TELE AT 80'S BPM. POSSIBLE D/C TODAY HOME W/HOME HEALTH. NO ACUTE CHANGES, VSS/AFEBRILE. WILL REPORT TO DAY RN.
[2024-09-29 06:35] LABS: International Normalized Ratio 1.29; Prothrombin Time Results 13.5 Sec (9.7-11.5)
[2024-09-29 06:45] LABS: Bun/Creatinine Ratio 26.6 (12.0-20.0); Calcium, Blood 8.9 mg/dL (8.5-10.1); Creatinine, Blood 1.24 mg/dL (0.60-1.20); Potassium, Blood 3.4 mmol/L (3.5-5.5)
[2024-09-29 07:04] VITALS: BP 129/81
[2024-09-29] MEDS ORDERED: Metoprolol Succinate 25 MG TABCR PO SCH (09:00)
[2024-09-29] MEDS ORDERED: Losartan Potassium 25 MG Tab PO SCH (09:00)
[2024-09-29] MEDS ORDERED: Torsemide 20 MG TAB PO SCH (09:00)
[2024-09-29 11:26] VITALS: BP 106/61
[2024-09-29] MEDS ORDERED: ASPI81CH PO (15:13)
[2024-09-29] MEDS ORDERED: ATOR80 PO (15:14)
[2024-09-29] MEDS ORDERED: MICONAZOLE NIT130 GM TOP (15:15)
--- NOTE | 2024-09-29 15:46 | NUR ---
PATIENT D/C'D TO HOME WITH NEIGHBOR. DC INSTRUCTIONS AND EDUCATION DISCUSSED WITH PATIENT AND COPY PROVIDED. RX MEDICATIONS FAXED TO [facility]. PATIENT DENIES ANY FURTHER QUESTIONS OR CONCERNS.
[2024-09-29] MEDS ORDERED: Warfarin Sodium 7.5 MG Tab PO SCH (18:00)
--- NOTE | 2024-09-29 18:31 | NUR ---
REVIEWED ASSESSMENT CHARTED BY KATHRYN BHATT, STUDENT NURSE AND I AGREE WITH HER DOCUMENTATION ON THIS PATIENT.
== END 2024-09-29 15:30 | disposition home health service (06) | DRG 65 ==
LOC: ER 21:24 → ERHOLD 21:25 → MEDS 21:25 → ENPENDDIS 09-29 13:09 → MEDS 09-29 15:30
PROVIDERS: Internal Medicine; Student in an Organized Health Care Education/Training Program; ADMIT Student in an Organized Health Care Education/Training Program
DX: I63.232 Cerebral infarction due to unspecified occlusion or stenosis of left carotid arteries (principal); D68.318 Other hemorrhagic disorder due to intrinsic circulating anticoagulants, antibodies, or inhibitors; G81.91 Hemiplegia, unspecified affecting right dominant side; I50.22 Chronic systolic (congestive) heart failure; N17.9 Acute kidney failure, unspecified; I13.0 Hypertensive heart and chronic kidney disease with heart failure and stage 1 through stage 4 chronic kidney disease, or unspecified chronic kidney disease; E78.5 Hyperlipidemia, unspecified; K21.9 Gastro-esophageal reflux disease without esophagitis; R29.706 NIHSS score 6; E11.22 Type 2 diabetes mellitus with diabetic chronic kidney disease; R47.01 Aphasia; N18.30 Chronic kidney disease, stage 3 unspecified; I25.10 Atherosclerotic heart disease of native coronary artery without angina pectoris; R47.02 Dysphasia; Z91.048 Other nonmedicinal substance allergy status; Z79.899 Other long term (current) drug therapy; Z79.84 Long term (current) use of oral hypoglycemic drugs; Z79.4 Long term (current) use of insulin; Z79.02 Long term (current) use of antithrombotics/antiplatelets; Z79.01 Long term (current) use of anticoagulants; Z85.038 Personal history of other malignant neoplasm of large intestine; Z95.5 Presence of coronary angioplasty implant and graft; Z90.49 Acquired absence of other specified parts of digestive tract; Z95.0 Presence of cardiac pacemaker; Z95.1 Presence of aortocoronary bypass graft; Z87.19 Personal history of other diseases of the digestive system
CPT/HCPCS: 0241U; 36415; 70450; 70496; 70498; 71046; 80048; 80053; 80061; 80069; 81003; 82947; 83036; 83735; 84100; 84484; 85025; 85027; 85610; 85730; 92523; 92526; 92610; 93005; 93010; 93308; 93321; 96360; 96361; 96365; 96366; 97110; 97162; 97165; 97530; 97535; 99285-25; A9270; G0378; J1815; J2470; J7030; J7070; Q9967

== ENCOUNTER → 2024-10-01 | Outpatient (CLI) | payer MEDICARE, OTHER ==
[~2024-10-01] MED LIST changes: +ASPI81CH PO; +ATOR80 PO; +MICONAZOLE NIT130 GM TOP
[2024-10-01 16:21] LABS: International Normalized Ratio 1.8; Prothrombin Time Results 18.4 Sec (9.7-11.5)
== END ==
LOC: LAB SHORT 14:44 → LAB 14:44
PROVIDERS: Student in an Organized Health Care Education/Training Program
DX: I82.409 Acute embolism and thrombosis of unspecified deep veins of unspecified lower extremity (principal); Z79.01 Long term (current) use of anticoagulants
CPT/HCPCS: 85610; 85730

== ENCOUNTER 2024-10-20 17:44 | Emergency (ER) | payer MEDICARE, OTHER ==
[~2024-10-20] VITALS: Ht 182.9 cm; Wt 57.6 kg
[2024-10-20 18:30] VITALS: BP 129/89
== END 2024-10-20 19:01 | disposition left against medical advice (07) ==
LOC: ER 17:44
DX: R73.9 Hyperglycemia, unspecified (principal); Z79.01 Long term (current) use of anticoagulants; Z79.899 Other long term (current) drug therapy; Z79.82 Long term (current) use of aspirin; Z79.84 Long term (current) use of oral hypoglycemic drugs; Z53.21 Procedure and treatment not carried out due to patient leaving prior to being seen by health care provider
CPT/HCPCS: 99281

== ENCOUNTER 2024-10-25 03:14 | Inpatient (IN) | payer MEDICARE, OTHER ==
[~2024-10-25] VITALS: Ht 182.9 cm; Wt 103.4 kg
[2024-10-25 03:42] LABS: BASOPHILS ABSOLUTE AUTO 0.04 K/mm3 (0.00-0.23); BASOPHILS PERCENT AUTO 1 % (0-2); EOSINOPHILS ABSOLUTE AUTO 0.14 K/mm3 (0.00-0.68); EOSINOPHILS PERCENT AUTO 2 % (0-6); Hematocrit 31.7 % (37.0-53.0); Hemoglobin 10.2 g/dL (13.5-17.5); IMMATURE GRAN ABSOLUTE AUTO 0.02 K/mm3 (0.00-0.10); IMMATURE GRAN PERCENT AUTO 0 % (0-1); LYMPHOCYTES ABSOLUTE AUTO 1.18 K/mm3 (0.84-5.20); LYMPHOCYTES PERCENT AUTO 16 % (21-46); MONOCYTES ABSOLUTE AUTO 0.81 K/mm3 (0.16-1.47); MONOCYTES PERCENT AUTO 11 % (4-13); Mean Corpuscular HGB 26.3 pg (26.0-34.0); Mean Corpuscular HGB Conc 32.2 g/dL (31.5-36.5); Mean Corpuscular Volume 82 fL (80-100); Mean Platelet Volume 9.5 fL (9.1-12.4); NEUTROPHILS ABSOLUTE AUTO 5.17 K/mm3 (1.96-9.15); NEUTROPHILS PERCENT AUTO 70 % (41-73); Platelet Count 356 K/mm3 (150-400); RDW Coefficient Variation 14.6 % (11.7-14.2); RDW Standard Deviation 43.7 fL (35.1-46.3); Red Blood Cell Count 3.88 M/mm3 (4.30-5.90); White Blood Cell Count 7.36 K/mm3 (4.00-11.30)
[2024-10-25 03:57] LABS: Anion Gap 10 mmol/L (3-11); Blood Urea Nitrogen 33 mg/dL (8-24); Bun/Creatinine Ratio 27.5 (12.0-20.0); C-REACTIVE PROTEIN, EXT RANGE <0.290 mg/dL (0.000-0.300); CO2, Blood 23 mmol/L (21-32); Calcium, Blood 8.8 mg/dL (8.5-10.1); Chloride, Blood 105 mmol/L (98-108); Glomerular Filtration Rate 63 (60-); Glucose, Blood 252 mg/dL (70-99); Potassium, Blood 3.9 mmol/L (3.5-5.5); Sodium, Blood 134 mmol/L (136-145)
[2024-10-25] MEDS ORDERED: Ampicillin Sod/Sulbactam Sod 3 GM in NS 100 ML IV ONE (04:10)
[2024-10-25] MEDS ORDERED: Pramipexole DI-HCL 0.125 MG Tab PO ONE (05:10)
[2024-10-25] MEDS ORDERED: HYDROmorphone HCl/Pf 1MG SYR IV PRN (07:35)
[2024-10-25] MEDS ORDERED: OxyCODONE HCL 5 MG TAB PO PRN (07:35)
[2024-10-25] MEDS ORDERED: Naloxone HCl 0.4MG / ML 1ML Vial IV PRN (07:35)
[2024-10-25] MEDS ORDERED: Ondansetron HCl 2 MG / ML 2ML Vial IV PRN (07:35)
[2024-10-25 08:19] LABS: Anti-Xa UFH, PHA Monitoring <0.10 IU/mL; International Normalized Ratio 1.65
[2024-10-25] MEDS ORDERED: Heparin Sodium,Porcine/0.5 NS 500 ML IV SCH (08:45)
[2024-10-25] MEDS ORDERED: Metoprolol Succinate 25 MG TABCR PO SCH (09:00)
[2024-10-25] MEDS ORDERED: CefTRIAXone Sodium 2,000 MG in NS 100 ML IV SCH (09:00)
[2024-10-25] MEDS ORDERED: Furosemide 40 MG Tab PO SCH (09:00)
[2024-10-25] MEDS ORDERED: Doxycycline Hyclate 100 MG TAB PO SCH (09:00)
[2024-10-25] MEDS ORDERED: Atorvastatin 40 MG Tab PO SCH (09:00)
[2024-10-25 09:24] VITALS: BP 118/75
[2024-10-25] MEDS ORDERED: rOPINIRole HCl 1 MG Tab PO ONE (11:00)
[2024-10-25] MEDS ORDERED: Insulin Human Lispro 100 Units/ML 3ML Syringe SC SCH (11:30)
[2024-10-25] MEDS ORDERED: Acetaminophen 500 MG Tab PO SCH (12:00)
[2024-10-25] MEDS ORDERED: Dose Adjust by Pharmacy XX STA ×2 (16:27→22:57)
[2024-10-25] MEDS ORDERED: Pantoprazole Sodium 20 MG Tab PO SCH (16:30)
--- NOTE | 2024-10-25 16:37 | NUR ---
RAS IS A VERY PLEASANT PATIENT, HE IS A&O X4, HOWEVER, HAS SOME DIFFICULTY WITH FINDING WORDS AND DOES LOSE HIS TRAIN OF THOUGHT EASILY. HE WOULD LIKE TO BE CONSULTED BY CASE MANAGEMENT ABOUT COMPLETING AN ADVANCED DIRECTIVE. HIS CALLED FOR UPDATES AND IS VERY SUPPORTIVE. THE DID CALL DR. MILLER TO CONSULT REGARDING THE RIGHT 2ND AND 3RD TOE AND LEFT 2ND TOE NOTED TO HAVE ESCHAR BY DR. EASLEY. HE HAS SIGNIFICANT B/L LE PAIN RELATED TO RESTLESS LEGS AND CLAUDICATION. TRACEE DID ADD REQUIP TO HIS MEDICATION LIST. HIS BED IS DOWN IN THE LOWEST POSITION, SIDE RAILS ARE UP, CALL LIGHT IS WITHIN REACH.
[2024-10-25 18:33] VITALS: BP 123/61
[2024-10-25 19:09] VITALS: BP 121/69
[2024-10-25] MEDS ORDERED: rOPINIRole HCl 1 MG Tab PO SCH (21:00)
[2024-10-26 03:03] VITALS: BP 151/77
[2024-10-26 05:23] LABS: BASOPHILS ABSOLUTE AUTO 0.05 K/mm3 (0.00-0.23); BASOPHILS PERCENT AUTO 1 % (0-2); EOSINOPHILS ABSOLUTE AUTO 0.16 K/mm3 (0.00-0.68); EOSINOPHILS PERCENT AUTO 3 % (0-6); Hematocrit 31.4 % (37.0-53.0); IMMATURE GRAN ABSOLUTE AUTO 0.02 K/mm3 (0.00-0.10); IMMATURE GRAN PERCENT AUTO 0 % (0-1); LYMPHOCYTES ABSOLUTE AUTO 0.96 K/mm3 (0.84-5.20); LYMPHOCYTES PERCENT AUTO 15 % (21-46); MONOCYTES ABSOLUTE AUTO 0.78 K/mm3 (0.16-1.47); MONOCYTES PERCENT AUTO 12 % (4-13); Mean Corpuscular HGB 26.1 pg (26.0-34.0); Mean Corpuscular HGB Conc 31.8 g/dL (31.5-36.5); Mean Corpuscular Volume 82 fL (80-100); NEUTROPHILS ABSOLUTE AUTO 4.36 K/mm3 (1.96-9.15); NEUTROPHILS PERCENT AUTO 69 % (41-73); Platelet Count 357 K/mm3 (150-400); RDW Coefficient Variation 14.7 % (11.7-14.2); RDW Standard Deviation 44.4 fL (35.1-46.3); Red Blood Cell Count 3.83 M/mm3 (4.30-5.90); White Blood Cell Count 6.33 K/mm3 (4.00-11.30)
[2024-10-26 05:47] LABS: Albumin, Blood 3.1 g/dL (3.4-5.0); Albumin/Globulin Ratio 0.8 (0.8-1.8); Bilirubin, Total 0.3 mg/dL (0.1-1.0); Bun/Creatinine Ratio 25.6 (12.0-20.0); Calcium, Blood 9.1 mg/dL (8.5-10.1); Creatinine, Blood 1.21 mg/dL (0.60-1.20); Magnesium, Blood 1.8 mg/dL (1.6-2.4); Phosphorus, Blood 3.6 mg/dL (2.5-4.9); Potassium, Blood 3.9 mmol/L (3.5-5.5); Total Protein, Blood 7.1 g/dL (6.4-8.2)
[2024-10-26] MEDS ORDERED: Dose Adjust by Pharmacy XX STA (05:47)
--- NOTE | 2024-10-26 05:54 | NUR ---
SHIFT SUMMARY: Pt is admitted for necrotic toes and is a full code. Is alert and able to make needs known. ADLs have been 1p min. Did not get out of bed. States he does not have any pain when asked but has been given routine APAP. has been NPO starting at midnight due to possible procedure today. Iv heparin has been running at 31.3 ml/h to left hand IV with no changes through shift.
--- NOTE | 2024-10-26 07:43 | NUR ---
0724- IN PERSON VERBAL FROM DR. MILLER TO CHANGE PT'S DIET ORDER TO ADA AND DC NPO ORDER.
--- NOTE | 2024-10-26 07:53 | NUR ---
CALLED DR. EASLEY AT 0750 TO CLARIFY PATIENT DIET AND ACHS/INSULIN ORDER. DR. EASLEY GAVE THE OK FOR JAZMIN ZAVALA TO UPDATE THE PATIENT'S INSULIN ORDERS TO MEDIUM SLIDING SCALE NOW THAT PATIENT IS NO LONGER NPO.
[2024-10-26] MEDS ORDERED: Insulin Human Lispro 100 Units/ML 3ML Syringe SC SCH ×2 (08:00)
[2024-10-26 08:27] VITALS: BP 139/86
[2024-10-26] MEDS ORDERED: Furosemide 20 MG Tab PO SCH (09:00)
[2024-10-26] MEDS ORDERED: NS 250 ML IV PRN (09:35)
[2024-10-26] MEDS ORDERED: NS 500 ML IV SCH (11:45)
[2024-10-26 17:58] VITALS: BP 130/80
--- NOTE | 2024-10-26 18:50 | NUR ---
SHIFT SUMMARY: PATIENT AOX4, WEAK GAIT, 1 ASSIST TO CHAIR/COMMODE. PATIENT COMPLAINS OF LEG PAIN ASSOCIATED WITH RESTLESS LEGS, TINGLING, NUMBNESS. HE RATES HIS PAIN AT 2/10, TREATED WITH TYLENOL PER THE MAR. PATIENT REPORTED PAIN 1/10 ON REEVALUATION ONE HOUR LATER. NO ACUTE EVENTS TODAY, PATIENT REPORTS HAVING HAD LITTLE SLEEP AND IS DROWSY. GOOD APPETITE.
[2024-10-26 19:41] VITALS: BP 112/60
[2024-10-26] MEDS ORDERED: rOPINIRole HCl 1 MG Tab PO SCH (21:00)
[2024-10-27 03:33] LABS: Hemoglobin 9.6 g/dL (13.5-17.5); Mean Corpuscular HGB 25.8 pg (26.0-34.0); Mean Corpuscular Volume 81 fL (80-100); Mean Platelet Volume 9.9 fL (9.1-12.4); Platelet Count 340 K/mm3 (150-400); RDW Coefficient Variation 14.4 % (11.7-14.2); RDW Standard Deviation 42.4 fL (35.1-46.3); Red Blood Cell Count 3.72 M/mm3 (4.30-5.90); White Blood Cell Count 6.12 K/mm3 (4.00-11.30)
[2024-10-27 03:54] LABS: Albumin, Blood 3.2 g/dL (3.4-5.0); Albumin/Globulin Ratio 0.8 (0.8-1.8); Bilirubin, Total 0.2 mg/dL (0.1-1.0); Bun/Creatinine Ratio 20.4 (12.0-20.0); Calcium, Blood 8.7 mg/dL (8.5-10.1); Creatinine, Blood 1.13 mg/dL (0.60-1.20); Globulin, Blood 3.9 g/dL (2.2-4.0); Magnesium, Blood 1.6 mg/dL (1.6-2.4); Potassium, Blood 4.1 mmol/L (3.5-5.5); Total Protein, Blood 7.1 g/dL (6.4-8.2)
[2024-10-27] MEDS ORDERED: Dose Adjust by Pharmacy XX STA (04:03)
[2024-10-27 04:32] VITALS: BP 132/57
[2024-10-27 04:34] VITALS: BP 128/64
--- NOTE | 2024-10-27 04:47 | NUR ---
HEPARIN RATE CHANGE. HEPARIN RATE CHANGE NOTIFICATION RECEIEVED FROM PHARMACY VIA EMAR. HEPARIN CHANGED TO 17 UNITS/KG/HR. VERIFIED WITH LISANDRA SHARP RN. DOCUMENTED CHANGE IN EMAR AT 9685.
[2024-10-27 07:41] VITALS: BP 153/82
--- NOTE | 2024-10-27 08:22 | NUR ---
SHIFT SUMMARY NOC. PT ADMIT FOR NECROTIC WOUNDS ON TOES. PT A/OX 2-3. PT OFTEN FORGETFUL AND NEEDING REDIRECTION AND REPEAT EDUCATION D/T FORGETFULNESS. BED ALARM SET FOR SAFETY. PT SET OFF BED ALARM WITHOUT CALLING FOR ASSISTANCE. PT IRITABLE AND WANTING TO LEAVE HOSPITAL THIS AM AT 0615. EDUCATION GIVEN TO PT ON RISKS OF LEAVING AMA AND PT AGREED TO WAIT FOR DR SHAIKH. PT ALSO FOUND PICKING AT WOUNDS ON TOES. EDUCATION PROVIDED ON INFECTION AND BLEEDING RISK. NO ACTIVE BLEEDING ON RIGHT 2ND AND 3RD TOE. CLEANSED WITH SALINE AND PLACED BANDAID ON SITES. PT MEDICATED FOR PAIN IN LEGS WITH SCHEDULED TYLENOL ORDERED. CALL LIGHT IN REACH.
--- NOTE | 2024-10-27 09:47 | NUR ---
0915- THIS RN CALLED MD EASLEY AND INFORMED HER PT WANTS TO GO AMA. SAID PT COULD BE DC TODAY PENDING JASVIR DUNN'S RECS. THIS RN CALLED IR AND ASKED FOR MD TO PLEASE COME SEE PT. MD EASLEY CAME TO BEDSIDE AND INFORMED PT OF THE PLAN FOR DC. THIS RN CALLED PT'S , TALIA, AND INFORMED HER OF PT'S DC PLAN. MD DUNN CAME TO BEDSIDE AND INFORMED PT HE NEEDS A REVASCULARIZATION PROCEDURE, BUT SINCE PT IS DRESSED AND READY TO GO AND WOULD LIKE TO LEAVE, PT CAN FOLLOW UP OUTPATIENT IF THIS IS WHAT PT WOULD LIKE. PT AGREED TO OUTPT FOLLOW UP. PT KEPT TRYING TO LEAVE AMA AND PT AGREED TO STAY IF HE COULD GET HIS IV'S OUT. IV'S WERE REMOVED. PT STATED HE HAS HIS CAR IN THE PARKING LOT AND HE IS GOING TO DRIVE HIMSELF HOME WHEN DC. INFORMED. STATED SHE HAS NOT DROVE FOR 2.5 YEARS AND THEY ONLY HAVE ONE CAR. MD EASLEY CALLED AND INFORMED THAT IR SAID PT CAN FOLLOW UP OUTPATIENT. MD EASLEY STATED SHE CAN DC PT SOON SHE IS DONE SEEING CURRENT PT. PT INFORMED OF DC PLAN AGAIN. PT AGREEABLE TO STAY UNTIL DC ORDERS PLACED.
--- NOTE | 2024-10-27 10:20 | NUR ---
0955- PT PUT HIMSELF IN HIS POWER WC AND DROVE HIMSELF OUT THE DOOR AND STATED, "I'M LEAVING." RN ASKED PT TO STAY 20 MINUTES SO MD COULD FINISH DC ORDERS, BUT PT DID NOT RESPOND AND LEFT HIS ROOM-HEADED FOR THE ELEVATORS. MD EASLEY CALLED AND INFORMED PT LEFT AMA. CHARGE NURSES NOTIFIED.
== END 2024-10-27 10:17 | disposition left against medical advice (07) | DRG 300 ==
LOC: ER 03:14 → MEDS 05:46
PROVIDERS: Emergency Medicine; Hospitalist; ADMIT Internal Medicine
DX: E11.52 Type 2 diabetes mellitus with diabetic peripheral angiopathy with gangrene (principal); E87.1 Hypo-osmolality and hyponatremia; I50.22 Chronic systolic (congestive) heart failure; I25.10 Atherosclerotic heart disease of native coronary artery without angina pectoris; E78.5 Hyperlipidemia, unspecified; K21.9 Gastro-esophageal reflux disease without esophagitis; E11.65 Type 2 diabetes mellitus with hyperglycemia; D64.9 Anemia, unspecified; Z85.038 Personal history of other malignant neoplasm of large intestine; Z95.1 Presence of aortocoronary bypass graft; Z95.5 Presence of coronary angioplasty implant and graft; Z86.73 Personal history of transient ischemic attack (TIA), and cerebral infarction without residual deficits; Z79.01 Long term (current) use of anticoagulants; Z79.899 Other long term (current) drug therapy; Z79.82 Long term (current) use of aspirin; Z79.84 Long term (current) use of oral hypoglycemic drugs; Z79.4 Long term (current) use of insulin; Z90.49 Acquired absence of other specified parts of digestive tract; Z95.0 Presence of cardiac pacemaker; Z53.29 Procedure and treatment not carried out because of patient's decision for other reasons
CPT/HCPCS: 36415; 73130; 73630; 73706; 80048; 80053; 82947; 83036; 83735; 84100; 85025; 85027; 85520; 85610; 85651; 85730; 86140; 93922; 96365; 99285-25; A9270; J0295; J0696; J1644; J2470; J7040; J7050; Q9967

== ENCOUNTER 2024-10-30 09:00 | Observation (INO) | payer MEDICARE, OTHER ==
[~2024-10-30] VITALS: Ht 175.3 cm; Wt 97.8 kg
[2024-10-30] MEDS ORDERED: Lactated Ringer's 1,000 ML IV SCH (09:40)
[2024-10-30 10:09] LABS: BASOPHILS ABSOLUTE AUTO 0.06 K/mm3 (0.00-0.23); BASOPHILS PERCENT AUTO 1 % (0-2); EOSINOPHILS ABSOLUTE AUTO 0.09 K/mm3 (0.00-0.68); EOSINOPHILS PERCENT AUTO 1 % (0-6); Hematocrit 35.8 % (37.0-53.0); Hemoglobin 11.5 g/dL (13.5-17.5); IMMATURE GRAN ABSOLUTE AUTO 0.04 K/mm3 (0.00-0.10); IMMATURE GRAN PERCENT AUTO 0 % (0-1); LYMPHOCYTES ABSOLUTE AUTO 0.83 K/mm3 (0.84-5.20); LYMPHOCYTES PERCENT AUTO 8 % (21-46); MONOCYTES ABSOLUTE AUTO 0.91 K/mm3 (0.16-1.47); MONOCYTES PERCENT AUTO 9 % (4-13); Mean Corpuscular HGB 25.8 pg (26.0-34.0); Mean Corpuscular HGB Conc 32.1 g/dL (31.5-36.5); Mean Corpuscular Volume 80 fL (80-100); Mean Platelet Volume 9.8 fL (9.1-12.4); NEUTROPHILS ABSOLUTE AUTO 8.45 K/mm3 (1.96-9.15); NEUTROPHILS PERCENT AUTO 81 % (41-73); Platelet Count 415 K/mm3 (150-400); RDW Coefficient Variation 14.9 % (11.7-14.2); RDW Standard Deviation 43.1 fL (35.1-46.3); Red Blood Cell Count 4.46 M/mm3 (4.30-5.90); White Blood Cell Count 10.38 K/mm3 (4.00-11.30)
[2024-10-30 10:18] LABS: International Normalized Ratio 1.21; Prothrombin Time Results 12.8 Sec (9.7-11.5)
[2024-10-30 10:30] LABS: Albumin/Globulin Ratio 0.9 (0.8-1.8); Bilirubin, Total 0.4 mg/dL (0.1-1.0); Bun/Creatinine Ratio 21.5 (12.0-20.0); Calcium, Blood 9.9 mg/dL (8.5-10.1); Creatinine, Blood 1.58 mg/dL (0.60-1.20); Globulin, Blood 4.5 g/dL (2.2-4.0); Potassium, Blood 3.7 mmol/L (3.5-5.5); Total Protein, Blood 8.5 g/dL (6.4-8.2)
[2024-10-30] MEDS ORDERED: Vancomycin HCL 2,000 MG in NS 500 ML IV ONE (11:30)
[2024-10-30] MEDS ORDERED: PRAMIPEXOLE DI0.5 MG PO (11:44)
[2024-10-30 13:04] LABS: Source, Urine Clean Catch
[2024-10-30 13:08] LABS: Appearance, Urine Clear (Clear); Bilirubin, Urine Neg (Neg); Blood, Urine Neg (Neg); Glucose Qualitative, Urine 4+ (Neg); Ketones, Urine Neg (Neg); Leukocyte Esterase, Urine Neg (Neg); Nitrite, Urine Neg (Neg); Protein, Urine Neg (Neg); Specific Gravity, Urine 1.015 (1.003-1.022); Urobilinogen, Urine NORM (Normal)
[2024-10-30 13:26] LABS: Color, Urine Pale Yellow (P-Yellow)
[2024-10-30] MEDS ORDERED: FentaNYL Citrate 50 MCG/ML 2 ML Injection IV PRN (13:30)
[2024-10-30] MEDS ORDERED: Acetaminophen 325 MG TABLET PO PRN (13:30)
[2024-10-30] MEDS ORDERED: Ondansetron HCl 2 MG / ML 2ML Vial IV PRN (13:35)
[2024-10-30] MEDS ORDERED: Magnesium Hydroxide Conc 10 ML UDC PO PRN (13:35)
[2024-10-30] MEDS ORDERED: Ondansetron 4 MG TAB PO PRN (13:35)
[2024-10-30] MEDS ORDERED: NS 1,000 ML IV SCH (14:00)
[2024-10-30 15:10] VITALS: BP 111/71
[2024-10-30] MEDS ORDERED: Pramipexole DI-HCL 0.25 MG Tab PO PRN (15:25)
[2024-10-30] MEDS ORDERED: NS 250 ML IV ONE (15:55)
[2024-10-30] MEDS ORDERED: Heparin Sodium 1000 Units/ML 10ML MDV ONE ×2 (15:55→16:02)
[2024-10-30] MEDS ORDERED: NS 1,000 ML IV ONE ×2 (15:55→16:02)
[2024-10-30] MEDS ORDERED: Nitroglycerin 2 MG/20 ML BTL ONE (15:55)
[2024-10-30] MEDS ORDERED: Midazolam HCl 1MG / ML 2ML Vial ONE (16:01)
[2024-10-30] MEDS ORDERED: FentaNYL Citrate 50 MCG/ML 2 ML Injection ONE (16:01)
[2024-10-30] MEDS ORDERED: Insulin Human Lispro 100 Units/ML 3ML Syringe SC SCH (16:30)
[2024-10-30 17:42] VITALS: BP 141/70
[2024-10-30 17:45] VITALS: BP 141/60
[2024-10-30 18:00] VITALS: BP 128/59
[2024-10-30 18:15] VITALS: BP 131/66
[2024-10-30] MEDS ORDERED: Sennosides 8.6 MG Tab PO SCH (21:00)
[2024-10-30] MEDS ORDERED: Docusate Sodium 100 MG Cap PO SCH (21:00)
[2024-10-30 23:25] VITALS: BP 118/48
[2024-10-31 04:06] LABS: BASOPHILS ABSOLUTE AUTO 0.04 K/mm3 (0.00-0.23); BASOPHILS PERCENT AUTO 1 % (0-2); EOSINOPHILS ABSOLUTE AUTO 0.13 K/mm3 (0.00-0.68); EOSINOPHILS PERCENT AUTO 2 % (0-6); Hematocrit 31.2 % (37.0-53.0); Hemoglobin 9.9 g/dL (13.5-17.5); IMMATURE GRAN ABSOLUTE AUTO 0.02 K/mm3 (0.00-0.10); IMMATURE GRAN PERCENT AUTO 0 % (0-1); LYMPHOCYTES ABSOLUTE AUTO 0.84 K/mm3 (0.84-5.20); LYMPHOCYTES PERCENT AUTO 12 % (21-46); MONOCYTES ABSOLUTE AUTO 0.82 K/mm3 (0.16-1.47); MONOCYTES PERCENT AUTO 11 % (4-13); Mean Corpuscular HGB 25.6 pg (26.0-34.0); Mean Corpuscular HGB Conc 31.7 g/dL (31.5-36.5); Mean Corpuscular Volume 81 fL (80-100); NEUTROPHILS ABSOLUTE AUTO 5.42 K/mm3 (1.96-9.15); NEUTROPHILS PERCENT AUTO 74 % (41-73); Platelet Count 343 K/mm3 (150-400); RDW Standard Deviation 43.6 fL (35.1-46.3); Red Blood Cell Count 3.87 M/mm3 (4.30-5.90); White Blood Cell Count 7.27 K/mm3 (4.00-11.30)
[2024-10-31 04:32] LABS: Albumin, Blood 3.2 g/dL (3.4-5.0); Albumin/Globulin Ratio 0.8 (0.8-1.8); Bilirubin, Total 0.3 mg/dL (0.1-1.0); Bun/Creatinine Ratio 25.4 (12.0-20.0); Calcium, Blood 9.1 mg/dL (8.5-10.1); Creatinine, Blood 1.22 mg/dL (0.60-1.20); Globulin, Blood 3.9 g/dL (2.2-4.0); Potassium, Blood 3.6 mmol/L (3.5-5.5); Total Protein, Blood 7.1 g/dL (6.4-8.2)
[2024-10-31 05:05] VITALS: BP 142/47
[2024-10-31] MEDS ORDERED: Pantoprazole Sodium 20 MG Tab PO SCH (06:00)
[2024-10-31 08:04] VITALS: BP 128/111
[2024-10-31] MEDS ORDERED: Metoprolol Succinate 25 MG TABCR PO SCH (09:00)
[2024-10-31] MEDS ORDERED: Atorvastatin 40 MG Tab PO SCH (09:00)
[2024-10-31] MEDS ORDERED: Aspirin 81 MG Chew PO SCH (09:00)
== END 2024-10-31 10:59 | disposition home or self-care (01) ==
LOC: ER 09:00 → PCU 09:01 → ER 15:05 → PCU 15:05
PROVIDERS: Emergency Medicine; Student in an Organized Health Care Education/Training Program; ADMIT Internal Medicine
DX: E11.621 Type 2 diabetes mellitus with foot ulcer (principal); L97.519 Non-pressure chronic ulcer of other part of right foot with unspecified severity; E11.51 Type 2 diabetes mellitus with diabetic peripheral angiopathy without gangrene; I70.202 Unspecified atherosclerosis of native arteries of extremities, left leg; I70.235 Atherosclerosis of native arteries of right leg with ulceration of other part of foot; N17.9 Acute kidney failure, unspecified; I95.9 Hypotension, unspecified; E87.1 Hypo-osmolality and hyponatremia; I25.10 Atherosclerotic heart disease of native coronary artery without angina pectoris; I11.0 Hypertensive heart disease with heart failure; I50.22 Chronic systolic (congestive) heart failure; G25.81 Restless legs syndrome; Z95.1 Presence of aortocoronary bypass graft; E78.5 Hyperlipidemia, unspecified; Z79.82 Long term (current) use of aspirin; Z79.4 Long term (current) use of insulin; Z79.84 Long term (current) use of oral hypoglycemic drugs; Z79.899 Other long term (current) drug therapy
CPT/HCPCS: 36415; 70450; 71045; 76937; 80053; 81003; 82947; 83605; 83880; 85025; 85610; 85730; 87040; 93005; 93010; 94762; 96361; 96365; 96366; 99152; 99153; 99285-25; A9270; C1725; C1760; C1769; C1876; C1887; C1894; G0378; J1644; J2250; J2470; J3010; J3370; J7030; J7040; J7050; J7120; Q9967

== ENCOUNTER → 2024-11-03 | Outpatient (CLI) | payer MEDICARE, OTHER ==
[~2024-11-03] MED LIST changes: +PRAMIPEXOLE DI0.5 MG PO
[2024-11-03 13:36] LABS: International Normalized Ratio 1.86
== END ==
LOC: LAB 12:23 → LAB SHORT 12:23
PROVIDERS: Student in an Organized Health Care Education/Training Program
DX: Z51.81 Encounter for therapeutic drug level monitoring (principal); Z79.02 Long term (current) use of antithrombotics/antiplatelets; Z86.711 Personal history of pulmonary embolism
CPT/HCPCS: 85610

== ENCOUNTER 2024-11-20 03:08 | Day surgery (SDC) | payer MEDICARE, OTHER ==
[2024-11-20] MEDS ORDERED: Lidocaine HCl 4% Cream 5 GM ONE (15:17)
== END 2024-11-20 23:00 | disposition home or self-care (01) ==
LOC: WOUND 03:08
DX: E11.621 Type 2 diabetes mellitus with foot ulcer (principal); L97.512 Non-pressure chronic ulcer of other part of right foot with fat layer exposed; L97.522 Non-pressure chronic ulcer of other part of left foot with fat layer exposed; E11.51 Type 2 diabetes mellitus with diabetic peripheral angiopathy without gangrene
CPT/HCPCS: A9270; G0463

== ENCOUNTER 2024-12-15 02:54 | Day surgery (SDC) | payer MEDICARE, OTHER | END 2024-12-15 23:00 | disposition home or self-care (01) | LOC: WOUND 02:54 | DX: E11.621 Type 2 diabetes mellitus with foot ulcer (principal); L97.512 Non-pressure chronic ulcer of other part of right foot with fat layer exposed; L97.522 Non-pressure chronic ulcer of other part of left foot with fat layer exposed; E11.51 Type 2 diabetes mellitus with diabetic peripheral angiopathy without gangrene; E11.42 Type 2 diabetes mellitus with diabetic polyneuropathy | CPT/HCPCS: G0463 ==

== ENCOUNTER 2025-01-14 10:53 | Day surgery (SDC) | payer MEDICARE, OTHER ==
[~2025-01-14] VITALS: Ht 182.9 cm; Wt 95.6 kg
[2025-01-14] VITALS (10 sets, daily range): BP systolic 129–163; BP diastolic 70–92
[~2025-01-14 10:53] MED LIST changes: +SOAANZ20 M2
[2025-01-14 13:03] LABS: Prothrombin Time Results 11.0 Sec (9.7-11.5)
[2025-01-14] MEDS ORDERED: NS 1,000 ML IV ONE ×2 (14:31→14:33)
[2025-01-14] MEDS ORDERED: NS 500 ML IV ONE (14:32)
[2025-01-14] MEDS ORDERED: Heparin Sodium 1000 Units/ML 10ML MDV ONE ×2 (14:33→14:59)
[2025-01-14] MEDS ORDERED: Nitroglycerin 2 MG/20 ML BTL ONE (14:33)
[2025-01-14] MEDS ORDERED: Midazolam HCl 1MG / ML 2ML Vial ONE (14:57)
[2025-01-14] MEDS ORDERED: FentaNYL Citrate 50 MCG/ML 2 ML Injection ONE (14:58)
== END 2025-01-14 20:17 | disposition home or self-care (01) ==
LOC: MHTC 10:53 → PCU 16:40 → MHTC 20:17
PROVIDERS: Radiology Diagnostic Radiology
DX: E11.51 Type 2 diabetes mellitus with diabetic peripheral angiopathy without gangrene (principal); L97.511 Non-pressure chronic ulcer of other part of right foot limited to breakdown of skin; L97.521 Non-pressure chronic ulcer of other part of left foot limited to breakdown of skin; I70.235 Atherosclerosis of native arteries of right leg with ulceration of other part of foot; I70.245 Atherosclerosis of native arteries of left leg with ulceration of other part of foot; I25.10 Atherosclerotic heart disease of native coronary artery without angina pectoris; I11.0 Hypertensive heart disease with heart failure; I50.20 Unspecified systolic (congestive) heart failure; K21.9 Gastro-esophageal reflux disease without esophagitis; I25.5 Ischemic cardiomyopathy; E78.00 Pure hypercholesterolemia, unspecified; I25.2 Old myocardial infarction; I44.1 Atrioventricular block, second degree; G25.81 Restless legs syndrome; Z86.711 Personal history of pulmonary embolism; Z86.718 Personal history of other venous thrombosis and embolism; Z87.891 Personal history of nicotine dependence; Z77.22 Contact with and (suspected) exposure to environmental tobacco smoke (acute) (chronic); Z79.01 Long term (current) use of anticoagulants; Z79.02 Long term (current) use of antithrombotics/antiplatelets; Z79.84 Long term (current) use of oral hypoglycemic drugs; Z79.899 Other long term (current) drug therapy; Z88.8 Allergy status to other drugs, medicaments and biological substances; Z95.0 Presence of cardiac pacemaker; Z95.1 Presence of aortocoronary bypass graft
CPT/HCPCS: 76937; 85610; 99152; 99153; C1725; C1760; C1769; C1887; C1894; J1644; J2250; J3010; J7030; J7050; Q9967

== ENCOUNTER 2025-02-04 13:10 | Emergency (ER) | payer MEDICARE, OTHER ==
[~2025-02-04] VITALS: Ht 182.9 cm; Wt 91.6 kg
[~2025-02-04 13:10] MED LIST changes: +ENOX120I SC; +HUMULIN N100 UNIT/3 SC; +METO50ER PO; +NITR.4SL SL; +PRAM.125 PO
[2025-02-04 14:01] LABS: BASOPHILS ABSOLUTE AUTO 0.06 K/mm3 (0.00-0.23); BASOPHILS PERCENT AUTO 1 % (0-2); EOSINOPHILS ABSOLUTE AUTO 0.13 K/mm3 (0.00-0.68); EOSINOPHILS PERCENT AUTO 2 % (0-6); Hematocrit 37.6 % (37.0-53.0); Hemoglobin 12.4 g/dL (13.5-17.5); IMMATURE GRAN ABSOLUTE AUTO 0.03 K/mm3 (0.00-0.10); IMMATURE GRAN PERCENT AUTO 0 % (0-1); LYMPHOCYTES ABSOLUTE AUTO 1.10 K/mm3 (0.84-5.20); LYMPHOCYTES PERCENT AUTO 16 % (21-46); MONOCYTES ABSOLUTE AUTO 0.79 K/mm3 (0.16-1.47); MONOCYTES PERCENT AUTO 12 % (4-13); Mean Corpuscular HGB Conc 33.0 g/dL (31.5-36.5); Mean Corpuscular Volume 78 fL (80-100); NEUTROPHILS ABSOLUTE AUTO 4.69 K/mm3 (1.96-9.15); NEUTROPHILS PERCENT AUTO 69 % (41-73); NRBC ABSOLUTE 0.00 K/mm3 (0.00-0.02); NRBC Auto 0.0 /100 WBC (0.0-0.2); Platelet Count 271 K/mm3 (150-400); RDW Coefficient Variation 22.0 % (11.7-14.2); RDW Standard Deviation 61.1 fL (35.1-46.3)
[2025-02-04 14:31] LABS: Alanine Aminotransfer (ALT/SGP 19.0 U/L (12-78); Albumin, Blood 3.2 g/dL (3.4-5.0); Albumin/Globulin Ratio 0.8 (0.8-1.8); Anion Gap 9.0 mmol/L (3-11); Aspartate Aminotrans (AST/SGOT 11.0 U/L (12-37); Bilirubin, Total 0.4 mg/dL (0.1-1.0); Blood Urea Nitrogen 18.0 mg/dL (8-24); CO2, Blood 25.0 mmol/L (21-32); Calcium, Blood 9.4 mg/dL (8.5-10.1); Chloride, Blood 105.0 mmol/L (98-108); Creatinine, Blood 0.92 mg/dL (0.60-1.20); Globulin, Blood 4.0 g/dL (2.2-4.0); Glucose, Blood 352.0 mg/dL (70-99); Potassium, Blood 4.4 mmol/L (3.5-5.5); Sodium, Blood 135.0 mmol/L (136-145); Total Protein, Blood 7.2 g/dL (6.4-8.2)
[2025-02-04 16:17] LABS: Source, Urine Voided
[2025-02-04 16:33] LABS: Bilirubin, Urine Neg (Neg); Color, Urine Yellow (P-Yellow); Glucose Qualitative, Urine 4+ (Neg); Ketones, Urine 1+ (Neg); Leukocyte Esterase, Urine Neg (Neg); Protein, Urine 2+ (Neg); Specific Gravity, Urine 1.015 (1.003-1.022); Urobilinogen, Urine NORM (Normal)
[2025-02-04 18:01] LABS: Prothrombin Time Results 11.4 Sec (9.7-11.5)
[2025-02-04 18:16] LABS: White Blood Cells, Urine 0-2 /hpf (0-5); Yeast/Fungi Urine Rare /hpf
[2025-02-04 18:30] VITALS: BP 157/82
== END 2025-02-04 20:48 | disposition home or self-care (01) ==
LOC: ER 13:10
PROVIDERS: Emergency Medicine
DX: R41.0 Disorientation, unspecified (principal); I11.0 Hypertensive heart disease with heart failure; I50.20 Unspecified systolic (congestive) heart failure; E78.5 Hyperlipidemia, unspecified; I25.10 Atherosclerotic heart disease of native coronary artery without angina pectoris; K21.9 Gastro-esophageal reflux disease without esophagitis; Z86.711 Personal history of pulmonary embolism; Z86.718 Personal history of other venous thrombosis and embolism; Z95.5 Presence of coronary angioplasty implant and graft; Z95.0 Presence of cardiac pacemaker; Z79.01 Long term (current) use of anticoagulants; Z79.02 Long term (current) use of antithrombotics/antiplatelets; Z79.84 Long term (current) use of oral hypoglycemic drugs; Z79.4 Long term (current) use of insulin; Z79.82 Long term (current) use of aspirin
CPT/HCPCS: 70450; 80053; 81001; 85025; 85610; 93005; 93010; 99285-25

== ENCOUNTER 2025-03-16 21:02 | Inpatient (IN) | payer MEDICARE, OTHER ==
[~2025-03-16] VITALS: Ht 182.9 cm; Wt 83.9 kg
[2025-03-16 21:33] LABS: Source, Urine Clean Catch
[2025-03-16 21:38] LABS: BASOPHILS ABSOLUTE AUTO 0.05 K/mm3 (0.00-0.23); BASOPHILS PERCENT AUTO 1 % (0-2); EOSINOPHILS ABSOLUTE AUTO 0.05 K/mm3 (0.00-0.68); EOSINOPHILS PERCENT AUTO 1 % (0-6); Hematocrit 40.4 % (37.0-53.0); Hemoglobin 13.8 g/dL (13.5-17.5); IMMATURE GRAN ABSOLUTE AUTO 0.08 K/mm3 (0.00-0.10); IMMATURE GRAN PERCENT AUTO 1 % (0-1); LYMPHOCYTES ABSOLUTE AUTO 0.75 K/mm3 (0.84-5.20); LYMPHOCYTES PERCENT AUTO 7 % (21-46); MONOCYTES ABSOLUTE AUTO 0.97 K/mm3 (0.16-1.47); MONOCYTES PERCENT AUTO 9 % (4-13); Mean Corpuscular HGB Conc 34.2 g/dL (31.5-36.5); Mean Corpuscular Volume 79 fL (80-100); NEUTROPHILS ABSOLUTE AUTO 8.93 K/mm3 (1.96-9.15); NEUTROPHILS PERCENT AUTO 82 % (41-73); NRBC ABSOLUTE 0.00 K/mm3 (0.00-0.02); NRBC Auto 0.0 /100 WBC (0.0-0.2); Platelet Count 210 K/mm3 (150-400); RDW Coefficient Variation 17.3 % (11.7-14.2); RDW Standard Deviation 50.1 fL (35.1-46.3)
[2025-03-16 21:39] LABS: Bilirubin, Urine Neg (Neg); Color, Urine Yellow (P-Yellow); Glucose Qualitative, Urine 4+ (Neg); Ketones, Urine 1+ (Neg); Leukocyte Esterase, Urine Neg (Neg); Protein, Urine 2+ (Neg); Specific Gravity, Urine 1.010 (1.003-1.022); Urobilinogen, Urine NORM (Normal)
[2025-03-16] MEDS ORDERED: Midazolam HCl 1MG / ML 2ML Vial IV ONE (21:45)
[2025-03-16 21:55] LABS: U Amphetamine Screen Not Detected; U Barbituate Screen Not Detected; U Benzodiazapine Screen Not Detected; U Buprenorphine Screen Not Detected; U Cannabinoids Screen Not Detected; U Cocaine Screen Not Detected; U Methadone Screen Not Detected; U Methamphetamine Screen Not Detected; U Opiates Screen Not Detected; U Oxycodone Screen Not Detected; U Phencyclidine Screen Not Detected
[2025-03-16 21:56] LABS: Red Blood Cells, Urine Not Seen /hpf (0-2); White Blood Cells, Urine Not Seen /hpf (0-5)
[2025-03-16 21:56] LABS: pH Blood Venous 7.33 (7.34-7.37)
[2025-03-16 22:37] LABS: Ethanol (Alcohol), Blood, Med <3 mg/dL; Magnesium, Blood 1.6 mg/dL (1.6-2.4); Thyroid Stimulating Hormone 1.240 uIU/mL (0.360-4.800)
[2025-03-16 22:38] LABS: Alanine Aminotransfer (ALT/SGP 23 U/L (12-78); Albumin, Blood 2.6 g/dL (3.4-5.0); Albumin/Globulin Ratio 0.6 (0.8-1.8); Anion Gap 14 mmol/L (3-11); Aspartate Aminotrans (AST/SGOT 17 U/L (12-37); Bilirubin, Total 0.3 mg/dL (0.1-1.0); Blood Urea Nitrogen 58 mg/dL (8-24); CO2, Blood 23 mmol/L (21-32); Calcium, Blood 9.6 mg/dL (8.5-10.1); Chloride, Blood 98 mmol/L (98-108); Creatinine, Blood 0.84 mg/dL (0.60-1.20); Globulin, Blood 4.4 g/dL (2.2-4.0); Glucose, Blood 830 mg/dL (70-99); Phosphorus, Blood 3.6 mg/dL (2.5-4.9); Potassium, Blood 5.5 mmol/L (3.5-5.5); Sodium, Blood 129 mmol/L (136-145); Total Protein, Blood 7.0 g/dL (6.4-8.2)
[2025-03-16] MEDS ORDERED: Insulin Regular 100 Unit/ML 1ML Dose IV ONE (22:40)
[2025-03-16] MEDS ORDERED: Insulin Human Regular 100 UNIT in NS 100 ML IV SCH (22:45)
[2025-03-16 23:54] LABS: Glucose, Blood 589 mg/dL (70-99)
[2025-03-17] VITALS (29 sets, daily range): BP systolic 84–1103; BP diastolic 56–90
[2025-03-17] MEDS ORDERED: HYDROmorphone HCl/Pf 1MG SYR IV PRN
[2025-03-17] MEDS ORDERED: Ondansetron HCl 2 MG / ML 2ML Vial IV PRN ×2 (00:05→02:55)
[2025-03-17 00:52] LABS: Glucose, Blood 522 mg/dL (70-99)
[2025-03-17] MEDS ORDERED: CefTRIAXone Sodium 1,000 MG in NS 50 ML IV ONE (01:35)
[2025-03-17 02:49] LABS: Prothrombin Time Results 11.6 Sec (9.7-11.5)
[2025-03-17] MEDS ORDERED: FLU VACC TS2025-26(6MOS UP)/PF 45 MCG/0.5 ML SYRINGE IM SCH (02:55)
[2025-03-17] MEDS ORDERED: NS 1,000 ML IV ONE (02:55)
[2025-03-17 03:15] LABS: BASOPHILS ABSOLUTE AUTO 0.07 K/mm3 (0.00-0.23); BASOPHILS PERCENT AUTO 1 % (0-2); EOSINOPHILS ABSOLUTE AUTO 0.09 K/mm3 (0.00-0.68); EOSINOPHILS PERCENT AUTO 1 % (0-6); Hematocrit 41.5 % (37.0-53.0); Hemoglobin 14.1 g/dL (13.5-17.5); IMMATURE GRAN ABSOLUTE AUTO 0.09 K/mm3 (0.00-0.10); IMMATURE GRAN PERCENT AUTO 1 % (0-1); LYMPHOCYTES ABSOLUTE AUTO 1.12 K/mm3 (0.84-5.20); LYMPHOCYTES PERCENT AUTO 10 % (21-46); MONOCYTES ABSOLUTE AUTO 1.09 K/mm3 (0.16-1.47); MONOCYTES PERCENT AUTO 10 % (4-13); Mean Corpuscular HGB Conc 34.0 g/dL (31.5-36.5); Mean Corpuscular Volume 79 fL (80-100); NEUTROPHILS ABSOLUTE AUTO 8.83 K/mm3 (1.96-9.15); NEUTROPHILS PERCENT AUTO 78 % (41-73); NRBC ABSOLUTE 0.00 K/mm3 (0.00-0.02); NRBC Auto 0.0 /100 WBC (0.0-0.2); Platelet Count 199 K/mm3 (150-400); RDW Coefficient Variation 17.2 % (11.7-14.2); RDW Standard Deviation 49.1 fL (35.1-46.3)
[2025-03-17 03:36] LABS: Alanine Aminotransfer (ALT/SGP 22.0 U/L (12-78); Albumin, Blood 2.8 g/dL (3.4-5.0); Albumin/Globulin Ratio 0.6 (0.8-1.8); Anion Gap 9.0 mmol/L (3-11); Aspartate Aminotrans (AST/SGOT 15.0 U/L (12-37); Bilirubin, Total 0.3 mg/dL (0.1-1.0); Blood Urea Nitrogen 53.0 mg/dL (8-24); CO2, Blood 24.0 mmol/L (21-32); Calcium, Blood 9.8 mg/dL (8.5-10.1); Chloride, Blood 107.0 mmol/L (98-108); Creatinine, Blood 0.73 mg/dL (0.60-1.20); Globulin, Blood 4.4 g/dL (2.2-4.0); Glucose, Blood 386.0 mg/dL (70-99); Potassium, Blood 4.2 mmol/L (3.5-5.5); Sodium, Blood 136.0 mmol/L (136-145); Total Protein, Blood 7.2 g/dL (6.4-8.2)
[2025-03-17] MEDS ORDERED: Magnesium Sulf 2 GM/Water 50ML 50 ML IV ONE (03:45)
[2025-03-17 03:51] LABS: Anti-Xa UFH, PHA Monitoring <0.10 IU/mL
[2025-03-17] MEDS ORDERED: Ampicillin Sod/Sulbactam Sod 3 GM in NS 100 ML IV SCH (04:00)
[2025-03-17] MEDS ORDERED: Albumin (Human) 25gm/100ml 100 ML IV ONE (04:00)
[2025-03-17] MEDS ORDERED: Heparin Sodium 5000 Units/ML 1ML MDV IV ONE (04:10)
[2025-03-17] MEDS ORDERED: Heparin Sodium,Porcine/0.5 NS 500 ML IV SCH (04:10)
[2025-03-17] MEDS ORDERED: NS 250 ML IV PRN (04:55)
[2025-03-17] MEDS ORDERED: D5W-1/2NS 1,000 ML IV SCH (06:20)
--- NOTE | 2025-03-17 07:01 | NUR ---
SHIFT SUMMARY: REPORT WAS GIVEN TO THIS RN BY ED RN AT 0131. PT ADMITTED TO ICU. ARRIVED TO UNIT AT 0142, TRANSPORTED VIA GURNEY BY VENTURA ZAVALA. PT WAS ASSISTED IN TRANSFERRING OVER TO ICU BED BY MULTIPLE RNS. PT ALERT, ORIENTED TO SELF. PT DOES NOT SPEAK-ACCORDING TO SPOUSE, PT HAS NOT SPOKEN SINCE PAST CVA. PT ABLE TO NOD AND SHAKE HEAD FOR YES/NO QUESTIONS. HE APPEARED SOMEWHAT CONFUSED BUT WAS COOPERATIVE AND FOLLOWED COMMANDS. PT WAS COOPERATIVE AT INITIAL ARRIVAL AND BECAME RESTLESS A BIT AFTER, ENDORSING BLE PAIN. PT HAS MULTIPLE SORES/SCABS TO BLE IN DIFFERENT STAGES OF HEALING. HE ALSO HAS CHRONIC WOUND IN-BETWEEN GLUTEAL FOLDS, HOSPITALIST AWARE/OBSERVED. PHOTOS OBTAINED. PT MEDICATED WITH PRN PAIN MEDICATION PER EMAR. PT SBP STABLE ON ARRIVAL, MAPS >65. PT ARRIVED ON RA, LUNGS CLEAR, REMAINS ON RA. SATS>93%. ABD SOFT, BT HYPOACTIVE X4. PT HAD ONE EPISODE OF URINARY INCONTINENCE, WAS CLEANED UP AND MALE PURE WICK SYSTEM PLACED. PT WAS ON INSULIN GTT ON ARRIVAL TO ICU, SEE FLOWSHEET FOR TITRATIONS. NEW ORDERS OBTAINED FROM HOSPITALIST ONCE CBG WAS BELOW 250. PT RESTING COMFORTABLY MOST OF SHIFT, CONTINUES TO SLEEP. THIS RN TO REPORT TO ONCOMING RN.
[2025-03-17 09:37] LABS: Anion Gap 8.0 mmol/L (3-11); Blood Urea Nitrogen 44.0 mg/dL (8-24); CO2, Blood 26.0 mmol/L (21-32); Calcium, Blood 9.7 mg/dL (8.5-10.1); Chloride, Blood 110.0 mmol/L (98-108); Creatinine, Blood 0.73 mg/dL (0.60-1.20); Glucose, Blood 212.0 mg/dL (70-99); Potassium, Blood 3.9 mmol/L (3.5-5.5); Sodium, Blood 140.0 mmol/L (136-145)
[2025-03-17] MEDS ORDERED: NS 1,000 ML IV SCH (10:30)
--- NOTE | 2025-03-17 11:44 | NUR ---
REASSESSMENT PT HAS BEEN RESTING IN BED THROUGHOUT THE MORNING. HE OPENS EYES TO VOICE, FOLLOWS COMMANDS, NODS OR SHAKES HIS HEAD APPROPRIATELY TO QUESTIONS, BUT DOES NOT SPEAK. 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 HE WAS ABLE TO LIFT BOTH HIS LEGS OFF THE BED WHEN HE GOT HIS BATH, WHICH HE WOULDN'T DO ON THE MORNING ASSESSMENT. LUNGS ARE CLEAR, RA, SR WITH BBB. VOIDING WITH ASSISTANCE OF THE MALE PUREWICK. DR. PLASCENCIA WAS ABLE TO GET IN TOUCH WITH HIS , WHO SAID SHE IS FINDING A RIDE TO COME IN AND VISIT. DR. PLASCENCIA GAVE ORDERS TO CONTINUE IV FLUIDS WELL FOR SS COVERAGE FOR BLOOD SUGARS EVERY 4 HOURS.
[2025-03-17] MEDS ORDERED: Insulin Human Lispro 100 Units/ML 3ML Syringe SC SCH (12:00)
[2025-03-17 15:50] LABS: Anion Gap 7.0 mmol/L (3-11); Blood Urea Nitrogen 38.0 mg/dL (8-24); CO2, Blood 27.0 mmol/L (21-32); Calcium, Blood 9.3 mg/dL (8.5-10.1); Chloride, Blood 109.0 mmol/L (98-108); Creatinine, Blood 0.69 mg/dL (0.60-1.20); Glucose, Blood 261.0 mg/dL (70-99); Potassium, Blood 4.0 mmol/L (3.5-5.5); Sodium, Blood 139.0 mmol/L (136-145)
[2025-03-17] MEDS ORDERED: Nystatin 100,000 Unit/ML Susp 5 ML UDC SS SCH (17:00)
--- NOTE | 2025-03-17 17:02 | NUR ---
SHIFT SUMMARY PT HAS BECOME MORE RESPONSIVE THROUGHOUT THE SHIFT. HE OPENS HIS EYES TO VOICE, ANSWERS YES/NO QUESTIONS, FOLLOWS DIRECTIONS. HIS LUNGS ARE CLEAR, REMAINS ON RA WITH SPO2 IN THE MID 90S. SR IN THE 80S WITH MAP IN THE 70S. SPOKE WITH PT'S THIS EVENING AND PROVIDED UPDATE. SHE SAYS SHE WILL BE HERE TOMORROW AROUND 11. REQUESTED A MED LIST AND SHE SAID SHE WOULD GRAB ALL HIS MEDICATIONS AND BRING THEM IN.
[2025-03-17] MEDS ORDERED: Dose Adjust by Pharmacy XX STA (19:10)
[2025-03-17 21:40] LABS: Anion Gap 8.0 mmol/L (3-11); Blood Urea Nitrogen 31.0 mg/dL (8-24); CO2, Blood 26.0 mmol/L (21-32); Calcium, Blood 9.0 mg/dL (8.5-10.1); Chloride, Blood 111.0 mmol/L (98-108); Creatinine, Blood 0.69 mg/dL (0.60-1.20); Glucose, Blood 279.0 mg/dL (70-99); Potassium, Blood 3.8 mmol/L (3.5-5.5); Sodium, Blood 141.0 mmol/L (136-145)
[2025-03-18] VITALS (19 sets, daily range): BP systolic 97–138; BP diastolic 59–82
[2025-03-18 03:47] LABS: BASOPHILS ABSOLUTE AUTO 0.06 K/mm3 (0.00-0.23); BASOPHILS PERCENT AUTO 1 % (0-2); EOSINOPHILS ABSOLUTE AUTO 0.16 K/mm3 (0.00-0.68); EOSINOPHILS PERCENT AUTO 2 % (0-6); Hematocrit 40.0 % (37.0-53.0); Hemoglobin 13.2 g/dL (13.5-17.5); IMMATURE GRAN ABSOLUTE AUTO 0.06 K/mm3 (0.00-0.10); IMMATURE GRAN PERCENT AUTO 1 % (0-1); LYMPHOCYTES ABSOLUTE AUTO 0.92 K/mm3 (0.84-5.20); LYMPHOCYTES PERCENT AUTO 9 % (21-46); MONOCYTES ABSOLUTE AUTO 0.88 K/mm3 (0.16-1.47); MONOCYTES PERCENT AUTO 9 % (4-13); Mean Corpuscular HGB Conc 33.0 g/dL (31.5-36.5); Mean Corpuscular Volume 82 fL (80-100); NEUTROPHILS ABSOLUTE AUTO 8.08 K/mm3 (1.96-9.15); NEUTROPHILS PERCENT AUTO 79 % (41-73); NRBC ABSOLUTE 0.00 K/mm3 (0.00-0.02); NRBC Auto 0.0 /100 WBC (0.0-0.2); Platelet Count 209 K/mm3 (150-400); RDW Coefficient Variation 17.7 % (11.7-14.2); RDW Standard Deviation 52.5 fL (35.1-46.3)
[2025-03-18] MEDS ORDERED: Dose Adjust by Pharmacy XX STA (12:53)
[2025-03-18] MEDS ORDERED: Heparin Sodium 1000 Units/ML 10ML MDV ONE (17:33)
[2025-03-18] MEDS ORDERED: NS 1,000 ML IV ONE ×2 (17:33→17:56)
[2025-03-18] MEDS ORDERED: Midazolam HCl 1MG / ML 2ML Vial ONE (17:56)
[2025-03-18] MEDS ORDERED: FentaNYL Citrate 50 MCG/ML 2 ML Injection ONE (17:56)
--- NOTE | 2025-03-18 18:54 | NUR ---
Summary. Pt remains aphasic, oriented to self, sometimes surroundings. Passed speech eval, npo most of shift for microbiology lab technician procedure. Pt taken to microbiology lab technician late in shift for IVC filter placement, back at 1841, r/groin access site intact, soft, no bleeding. Pt moving own weight in bed, repositioned self multiple times throughout shift to get off turn pillows and wedges. Pt educated on importance of keeping weight off of coccyx due to open wound. No acute events this shift, see chart for details.
[2025-03-18] MEDS ORDERED: Insulin Glargine 100 Unit/ML 3 ML SYR SC SCH (21:00)
[2025-03-18] MEDS ORDERED: Insulin Glargine-Yfgn 100 Unit/mL 3 ML SYR SC SCH (21:00)
[2025-03-18] MEDS ORDERED: Insulin Glargine,Hum.Rec.Anlog 100 UNIT/ML 3MLSYR SC SCH (21:00)
[2025-03-19 03:18] VITALS: BP 131/71
[2025-03-19 04:18] LABS: Hematocrit 35.5 % (37.0-53.0); Hemoglobin 12.1 g/dL (13.5-17.5); Platelet Count 193 K/mm3 (150-400)
[2025-03-19 04:39] LABS: Anion Gap 6.0 mmol/L (3-11); Blood Urea Nitrogen 15.0 mg/dL (8-24); CO2, Blood 24.0 mmol/L (21-32); Calcium, Blood 8.1 mg/dL (8.5-10.1); Chloride, Blood 110.0 mmol/L (98-108); Creatinine, Blood 0.63 mg/dL (0.60-1.20); Glucose, Blood 189.0 mg/dL (70-99); Potassium, Blood 3.4 mmol/L (3.5-5.5); Sodium, Blood 137.0 mmol/L (136-145)
[2025-03-19] MEDS ORDERED: Clarify Drug Order XX ONE (05:20)
--- NOTE | 2025-03-19 06:52 | NUR ---
NO ACUTE EVENTS OVERNIGHT. PT WAS STABLE S/P IVC FILTER PROCEDURE. RIGHT GROIN PUNCTURE SITE WNL. HEPARIN AND IV FLUIDS INFUSING. PT'S BROTHER, SARAY, CALLED AND SAID THAT PT'S HOME SITUATION ISN'T OPTIMAL BECAUSE THE PT'S ISN'T ABLE TO PROPERLY CARE FOR THE PT. PT'S BROTHER SAID HE'LL COME TO TOWN 03/26/25. PT ABLE TO ANSWER SIMPLE QUESTIONS WITH A HEAD NOD OR VERBALIZE "YES OR NO". 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 MALE PURWICK IN PLACE. BED LOCKED IN LOWEST POSITION. CALL LIGHT WITHIN REACH.
[2025-03-19 07:50] VITALS: BP 137/74
--- NOTE | 2025-03-19 09:41 | NUR ---
UPDATE PT BOOSTED IN BED IN PREPARATION FOR BREAKFAST. PT ATE ENTIRE BREAKFAST WITHOUT ISSUE. PT REQUESTED MORE TO BY POINTING AT HIS TRAY AND SAYING "MORE." THIS RN DESCRIBED PANRTY OPTIONS. PT SHOOK HIS HEAD YES TO HALF OF SANDWICH AND PUDDING. SANDWICH AND PUDDING PROVIDED. THIS RN NOTIFED ROUGHLY 10 MINUTES LATER THAT PT HAD BEGAN TO VOMIT AND COUGH UP SOME FOOD. THIS RN TO ROOM TO ASSIST WITH SUCTION AND BOOST PT IN BED AGAIN PT WAS SLID DOWN AGAIN. FOOD AND WATER REMOVED AT THIS TIME AND SUCTION PROVIDED TO PT. PT INFORMED TO USE SUCTION IF HE BEGANS TO COUGH UP ANYTING, PT AGREEABLE.
[2025-03-19] MEDS ORDERED: Insulin Human Lispro 100 Units/ML 3ML Syringe SC SCH ×2 (11:30)
[2025-03-19 11:32] VITALS: BP 123/53
--- NOTE | 2025-03-19 13:06 | NUR ---
UPDATE PT AT BEDSIDE THIS AFTERNOON. REPORTED THAT PT "SEEMS MUCH BETTER THAN HE WAS AT HOME." UPDATED ON PLAN OF CARE AND CURRENT BLOOD SUGAR LEVELS. PT COMMUNICATING WITH IN 2-3 WORD SENTENCES, PT HEARD SAYING "I LOVE YOU" TO HIS . STATED THAT PT HAS NOT ABLE TO TALK RECENTLY AND HAS BEEN USING HAND SIGNALS. THIS RN EXPLAINED TO PT THAT HE HAS BEEN USING HIS LOWER EXTREMITIES MORE TODAY AND ASKED IF HE WOULD BE OPEN TO WORKING WITH PHYSICAL THERAPY, PT SAID YES.
--- NOTE | 2025-03-19 13:38 | NUR ---
ELIQUIS GIVEN PER ORDER AND HEP GTT STOPPED AT 1338.
--- NOTE | 2025-03-19 15:23 | NUR ---
UPDATE PT WORKED WITH OCCUPATIONAL THERAPY. PT ABLE TO GET TO RECLINER WITH ASSISTANCE AND USING FWW/GB, SEE THERAPIST NOTES. PT REPORTING PAIN TO HIS LEGS AFTER RECLINING AND LIFTING LEGS. THERAPIST WAS GOING TO ATTEMPT TO REPOSITION A PILLOW UNDER PT FOR COMFORT, PT DECLINED. PT REQUESTED TO LEAVE RECLINER IN THE RECLINED POSITION. CALL LIGHT PROVIDED.
[2025-03-19 17:23] VITALS: BP 130/74
--- NOTE | 2025-03-19 17:25 | NUR ---
TRANSFER UPDATE/SHIFT SUMMARY REPORT GIVEN TO PCU NURSE AT 1630. PT TRANSFERED TO PCU AT 1700 VIA WHEELCHAIR AND ON RA. PT ABLE TO TRANSFER FROM RECLINER TO WHEELCHAIR WITH MINIMAL ASSISTANCE USING FWW/GB. PT PERSONAL BELONGINS AND CHART TRANSFERED WITH PT. CONTACTED AND UPDATED ON MOVE TO PCU. PT A/OX2-3, MOSTLY NONVERBAL. PT ABLE TO SPEAK FEW WORDS TODAY, REPORTED THAT HE HAS NOT BEEN ABLE TO SPEAK WORDS "FOR AWHILE." PT VSS THROUGHOUT SHIFT WITH O2 SATS IN THE 90'S ON RA. PT DID NOT ENDORSE CHEST PAIN/PRESSURE THROUGHOUT SHIFT. PT DID NOT ENDORSE SOB. PT WORKED WITH PT/OT TODAY, ABLE TO TRANSFER TO RECLINER VIA FWW/GB, TOLERATED WELL. PT AT BEDSIDE TO AND UPDATED ON PLAN OF CARE. PT STARTED ON ELIQUIS TODAY AND HEP GTT STOPPED PER ORDER. PT ENDORSED PAIN TO HIS LEGS, MD NOTIFIED AND TYLENOL ORDERED. PT WAS CONNECTED TO [employer] DURING SHIFT, DECENT OUTPUT, SEE I/O'S. PALLIATIVE CONSULTED TO DISCUSS CODE STATUS.
--- NOTE | 2025-03-19 17:51 | NUR ---
TRANSFER TO PCU: PATIENT ALERT AND ORIENTED X3. SPEAKING MINIMAL WORDS AND NODDING HEAD YES AND NO. STATES HE LIKES TO BE CALLED "JORDY". ENDORSES PAIN TO BLE. TYLENOL GIVEN PER EMAR. UP WITH ONE PERSON AND FWW/GAIT BELT. MOVING ALL EXTREMITIES AND PUSHING SELF UP IN RECLINER TO REPOSITION. WAFFLE CUSHION PROVIDED IN RECLINER. ON ROOM AIR SATING ABOVE 95%. LUNG SOUNDS DIMINISHED. EVEN AND UNLABORED RESPIRATIONS. TELE SHOWING V PACED WITH HR 70'S. SBP 130'S. IV FLUIDS INFUSING PER EMAR. TOLERATING PO DIET. EATING DINNER AT THIS TIME. TRAY SET UP. SUCTION AT BEDSIDE. PUREWICK IN PLACE. ATTENDS CHANGED UPON ARRIVAL. COCCYX OPEN WOUND, SEE CHART PHOTO. ACHS BLOOD SUGAR CHECKS. YELLOW GOWN IN PLACE FOR FALL RISK. CHAIR ALARM IN PLACE. DENIES NEEDS AT THIS TIME. CALL LIGHT IN REACH.
[2025-03-19 20:07] VITALS: BP 135/79
[2025-03-19] MEDS ORDERED: Insulin Glargine 100 Unit/ML 3 ML SYR SC SCH (21:00)
[2025-03-19 23:33] VITALS: BP 140/75
[2025-03-20 03:29] VITALS: BP 109/73
[2025-03-20 03:54] LABS: Hematocrit 35.5 % (37.0-53.0); Hemoglobin 11.6 g/dL (13.5-17.5); Mean Corpuscular HGB Conc 32.7 g/dL (31.5-36.5); Mean Corpuscular Volume 83 fL (80-100); NRBC ABSOLUTE 0.00 K/mm3 (0.00-0.02); NRBC Auto 0.0 /100 WBC (0.0-0.2); Platelet Count 208 K/mm3 (150-400); RDW Coefficient Variation 17.4 % (11.7-14.2); RDW Standard Deviation 53.1 fL (35.1-46.3)
[2025-03-20 04:24] LABS: Anion Gap 9.0 mmol/L (3-11); Blood Urea Nitrogen 24.0 mg/dL (8-24); CO2, Blood 23.0 mmol/L (21-32); Calcium, Blood 8.2 mg/dL (8.5-10.1); Chloride, Blood 108.0 mmol/L (98-108); Creatinine, Blood 0.83 mg/dL (0.60-1.20); Glucose, Blood 317.0 mg/dL (70-99); Potassium, Blood 4.1 mmol/L (3.5-5.5); Sodium, Blood 136.0 mmol/L (136-145)
--- NOTE | 2025-03-20 04:53 | NUR ---
SHIFT SUMMARY. SHIFT HAS BEEN UNREMARKABLE. PT HAS BEEN ABLE TO REST COMFORTABLY THROUGHOUT MUCH OF SHIFT. HAS DENIED PAIN THROUGHOUT SHIFT. NO NEURO CHANGES THIS SHIFT. VITALS STABLE. MAINTAINS ADEQUATE SATURATION ON ROOM AIR. HAS RUN VPACED ON TELE THROUGHOUT SHIFT, RATE IN THE 60s-70s. PUREWICK IN PLACE, FUNCTIONING WELL. BED LOCKED IN LOWEST POSITION. CALL LIGHT LEFT WITHIN REACH. CONTINUING TO MONITOR.
[2025-03-20 07:38] VITALS: BP 150/82
--- NOTE | 2025-03-20 09:30 | NUR ---
AM NOTE: PATIENT ALERT AND ORIENTED TO SELF, PLACE, STAFF AND FAMILY. HISTORY OF STROKE AND STRUGGLING WITH EXPRESSING NEEDS. APHASIA. ANSWERING YES AND NO QUESTIONS. MOVING ALL EXTREMITIES. UP WITH ONE PERSON, FWW AND GAIT BELT. WEAKNESS NOTED THROUGHOUT. ABLE TO TURN SELF IN BED AND SIT UP IND. BED AND CHAIR ALARMS IN PLACE. TELE SHOWING VPACED WITH HR 60-80'S. DENIES CHEST PAIN/PRESSURE/PALPITATIONS. SBP 150'S. MINIMAL EDEMA TO BLE. RIGHT GROIN IVC FILTER SITE WNL, DRESSING C/D/I. IV'S SALINE LOCKED. PPP. ON ROOM AIR SATING ABOVE 95%. COARSE LUNG SOUNDS WITH OCCASIONAL MOIST COUGH. SUCTION AT BEDSIDE. EVEN AND UNLABORED RESPIRATIONS. BOWEL TONES PRESENT. ACHS BLOOD SUGAR CHECKS. TOLERATING PO DIET. PUREWICK IN PLACE WELL ATTENDS. BLE WITH SCATTERED SCABBING/WOUNDS, SEE CHART PHOTOS. COCCYX STAGE [address] PRESS[address] WOUND SEE CHART PHOTO. DR. YUSUF TO BEDSIDE THIS AM AND THIS RN PRESENT FOR ROUNDING.
[2025-03-20 11:40] VITALS: BP 150/69
[2025-03-20] MEDS ORDERED: Insulin Glargine-Yfgn 100 Unit/mL 3 ML SYR SC SCH (12:00)
[2025-03-20] MEDS ORDERED: Insulin Glargine 100 Unit/ML 3 ML SYR SC SCH ×2 (12:09→21:00)
--- NOTE | 2025-03-20 14:42 | NUR ---
BROTHER Robin SO UPDATED ON PLAN OF CARE. BROTHER TO BE HERE FROM [place] ON 03/27. CONCERNS WITH CURRENT LIVING CONDITIONS AND CARE RECIEVED AT HOME. CASE MANAGEMENT UPDATED.
[2025-03-20 15:02] VITALS: BP 128/76
[2025-03-20] MEDS ORDERED: ZINC OXIDE/PETROLATUM, YELLOW 1 APPLIC/71 GM PASTE TOP PRN (16:15)
--- NOTE | 2025-03-20 18:20 | NUR ---
NO ACUTE CHANGES, SEE PREVIOUS NOTES. PATIENT UP IN RECLINER EATING DINNER AT THIS TIME. DENIES NEEDS. ON ROOM AIR. MEDICAL STATUS NO TELE. PUREWICK IN PLACE. CALL LIGHT IN REACH. CHAIR ALARM IN PLACE.
[2025-03-20 20:30] VITALS: BP 151/73
[2025-03-21 03:40] VITALS: BP 135/88
--- NOTE | 2025-03-21 04:43 | NUR ---
SHIFT SUMMARY. SHIFT HAS BEEN UNREMARKABLE. PT HAS BEEN ALERT AND ABLE TO MAKE NEEDS KNOWN/FOLLOW COMMANDS. HAS BEEN ABLE TO REST COMFORTABLY THROUGHOUT MUCH OF SHIFT THUS FAR. HAS DENIED PAIN THROUGHOUT SHIFT. VITALS HAVE REMAINED STABLE. MED STATUS NO TELE. EARLY IN SHIFT, WAS ABLE TO GET ONTO COMMODE TO HAVE BM STEADY 1PA TRANSFER W/ GB+FWW. CALLS APPROPRIATELY FOR ASSISTANCE THUS FAR. BED ALARM HAS REMAINED ACTIVE FOR SAFETY. BED LOCKED IN LOWEST POSITION. CALL LIGHT LEFT WTIHIN REACH. CONTINUING TO [facility].
[2025-03-21 07:23] VITALS: BP 126/82
[2025-03-21] MEDS ORDERED: Insulin Glargine 100 Unit/ML 3 ML SYR SC ONE (08:10)
--- NOTE | 2025-03-21 08:55 | NUR ---
UPDATE: PT ATE BREAKFAST THIS MORNING UP IN CHAIR, PT BEGAN TO COUGH UP SALIVA AND FOOD FOLLOWING BREAKFAST. MD NOTIFIED, ORDERS RECIVED FOR NPO AT THIS TIME AND POSSIBLE BARIUM SWALLOW EVAL IN AM. SPO2 REMAINS >94% ON ROOM AIR.
[2025-03-21 11:27] VITALS: BP 136/69
[2025-03-21 15:35] VITALS: BP 126/64
--- NOTE | 2025-03-21 16:07 | NUR ---
SHIFT SUMMARY: PT ALERT TO SELF, ABLE TO MAKE NEEDS KNOWN THROUGHOUT SHIFT. STRENGTH EQUAL BILATERALLY, PERRLA. ROOM AIR, SATS >95%. DENIES SOB. MED STATUS, NO TELE. PULSES STRONG AND EQUAL THROUGHOUT VSS. PT 1-2PA TO BSC AND CHAIR. MULTIPLE BMs TODAY. WHICKING SYSTEM IN PLACE, DRAINING YELLOW URINE. PT RECEIVED BEDBATH TODAY. PT REMAINS NPO DUE TO ASPIRATION RISK, PLANS FOR SPEECH EVAL IN AM. PT LYING IN BED, CALL LIGHT WITHIN REACH.
[2025-03-21 19:38] VITALS: BP 150/76
--- NOTE | 2025-03-21 19:51 | NUR ---
ASSUMED CARE OF THIS PT AT APPROX 1900 PT IS SLEEPING IN BED DURING BEDSIDE SHIFT REPORT. HE IS FLAT ON HIS BACK PILLOWS UNDER EACH ARM. PURWICK IN PLACE DRAINING TO SUCTION, URINE YELLOW IN COLOR. IV TO THE R FOREARM AND L AC BUT FLUSHED WELL. SPO2 MONITOR SHOWING 96% ON RA. PT IS STRICT NPO D/T ASPRIATION AT BREAKFAST, PLAN FOR SPEECH TO EVALUATE IN THE AM. THIS PT TO MOVE UPSTAIRS TO ROOM 362, ATTMEPTED TO CALL REPORT, NURSE TO CALL BACK.
--- NOTE | 2025-03-21 20:07 | NUR ---
REPORT CALLED TO MEDICAL FLOOR RN SHABBIR, PT GOING TO ROOM 362. PT UPDATED ON ROOM CHANGE VIA PHONE.
[2025-03-21 20:21] VITALS: BP 134/73
[2025-03-21] MEDS ORDERED: Insulin Glargine 100 Unit/ML 3 ML SYR SC SCH (21:00)
--- NOTE | 2025-03-22 05:01 | NUR ---
SHIFT SUMMARY PATIENT IS ALERT AND ORIENTED 2-3X. PATIENT HAS HAD NO ACUTE EVENTS THIS SHIFT. VITAL SIGNS REVIEWED. PATIENT HAS HAD NO COMPLAINTS OF SOB, NAUSEA, PAIN OR VOMITTING THIS SHIFT. PATIENT IS NONVERBAL AT BASELINE. PATIENT HAS BEEN STRICT NPO SINCE TRANSFER FROM PCU DUE TO ASPIRATION PRECAUTIONS. SPEECH EVAL TODAY IS PLANNED. BED IN LOCKED AND LOWEST POSITION. CALL LIGHT IN PLACE.
[2025-03-22 05:11] VITALS: BP 125/70
[2025-03-22] MEDS ORDERED: Insulin Human Lispro 100 Units/ML 3ML Syringe SC SCH ×2 (06:00→11:30)
[2025-03-22 07:35] VITALS: BP 138/76
[2025-03-22] MEDS ORDERED: Insulin Glargine 100 Unit/ML 3 ML SYR SC SCH ×2 (10:00→21:00)
[2025-03-22 16:04] VITALS: BP 116/63
--- NOTE | 2025-03-22 17:04 | NUR ---
PHYSICIAN CONTACT DR. YUSUF NOTIFIED OF ELEVATED BLOOD SUGAR OF 391. MD TO MAKE CHANGES TO INSULIN ORDERS.
--- NOTE | 2025-03-22 19:17 | NUR ---
SHIFT SUMMARY PATIENT ALERT AND ORIENTED X2 NONVERBAL. PATIENT PLEASANT AND COOPERATIVE DURING SHIFT. PATIENT RETAINING URINE, ORDER TO BLADDER SCAN AND STRAIGHT CATH IN PLACE. COMPLAINED OF PAIN AND MEDICATION ADMINISTERED PER EMAR. DRESSING CHANGED ON COCCYX. SELF - REPOSITION THROUGHOUT THE SHIFT. BED LOCKED AND IN LOWEST POSITION. CALL LIGHT WITHIN REACH.
[2025-03-22 20:11] VITALS: BP 127/77
--- NOTE | 2025-03-23 04:36 | NUR ---
SHIFT SUMMARY- SHIFT EVENTS- URINE OUTPUT APPROPRIATE, NO STRAIGHT CATH OR BLADDER SCAN NEEDED. A&Ox3-4 CONFUSION. PLEASANT AND COOPERATIVE WITH CARE. CALLS APPROPRIATELY AND IS ABLE TO ADVOCATE NEEDS EFFECTIVELY. VSS. HS BLOOD SUGAR 333 REQUIRING COVERAGE. BREATHING EVEN AND UNLABORED PN RA. CONTINENT OF BOWEL AND BLADDER;USING PUREWIK DUE TO FALL RISK. HX OF URINE RETENTION Q6 BLADDER SCAN AND STRAIGHT CATH ORDERED. URINE OUTPUT APPROPRIATE ON THIS SHIFT. TOLERATING DIET. HE LIKES SNACKS. STAGE 2 PRESSURE ULCER GLUTEAL CLEFT. IV R FA, SALINE LOCKED. MEDS WHOLE c FLUIDS. BED IN LOWEST POSITION, CALL LIGHT WITHIN REACH, ALL NEEDS MET. REPORT TO ONCOMING NURSE.
[2025-03-23 05:18] VITALS: BP 133/77
[2025-03-23 08:15] VITALS: BP 139/70
[2025-03-23] MEDS ORDERED: Insulin Glargine 100 Unit/ML 3 ML SYR SC SCH (09:00)
[2025-03-23] MEDS ORDERED: Athenol325 MG PO (10:52)
[2025-03-23] MEDS ORDERED: AMOCLA875 PO (10:53)
[2025-03-23] MEDS ORDERED: ELIQUIS5 M2 PO (10:54)
[2025-03-23] MEDS ORDERED: BASAGLAR K100 UNIT/4 SC (10:56)
[2025-03-23] MEDS ORDERED: NYSTATIN100000 U10 MT (10:59)
[2025-03-23] MEDS ORDERED: ZINCTRAL57 GM TOP (11:01)
[2025-03-23] MEDS ORDERED: INSULIN LI100 UNIT/6 SC (11:04)
--- NOTE | 2025-03-23 13:32 | NUR ---
DISCHARGE PT DISCHARGED TO [facility] FOR TRANSPORT TO [facility]. NO ACUTE CHANGES IN ASSESSMENT PRIOR TO DC. IVS REMOVED & INTACT. PT , TALIA UPDATED ON PT TRANSFER AND FACILITY NAME. NURSE TO NURSE REPORT GIVEN TO PHYLLIS. NO FURTHER QUESTIONS AT THIS TIME. PT DENIED PAIN THIS SHIFT.
== END 2025-03-23 13:30 | DRG 299 ==
LOC: ER 21:02 → ICUE 21:03 → MEDS 03-17 11:11 → ICUE 03-17 11:11 → PCU 03-19 17:19 → MEDS 03-21 20:21
PROVIDERS: Emergency Medicine; Internal Medicine; ADMIT Internal Medicine
PROC: 3E03329 Introduction of Other Anti-infective into Peripheral Vein, Percutaneous Approach (ICD-10-PCS; 2025-03-17)
PROC: 30233J1 Transfusion of Nonautologous Serum Albumin into Peripheral Vein, Percutaneous Approach (ICD-10-PCS; 2025-03-17)
PROC: 06H03DZ Insertion of Intraluminal Device into Inferior Vena Cava, Percutaneous Approach (ICD-10-PCS; principal; 2025-03-18)
DX: I82.411 Acute embolism and thrombosis of right femoral vein (principal); G92.8 Other toxic encephalopathy; I26.99 Other pulmonary embolism without acute cor pulmonale; J69.0 Pneumonitis due to inhalation of food and vomit; I50.22 Chronic systolic (congestive) heart failure; I82.441 Acute embolism and thrombosis of right tibial vein; I82.412 Acute embolism and thrombosis of left femoral vein; R41.82 Altered mental status, unspecified; I11.0 Hypertensive heart disease with heart failure; E78.5 Hyperlipidemia, unspecified; K21.9 Gastro-esophageal reflux disease without esophagitis; I25.10 Atherosclerotic heart disease of native coronary artery without angina pectoris; R29.6 Repeated falls; E86.0 Dehydration; E11.51 Type 2 diabetes mellitus with diabetic peripheral angiopathy without gangrene; E11.65 Type 2 diabetes mellitus with hyperglycemia; Z91.148 Patient's other noncompliance with medication regimen for other reason; Z86.73 Personal history of transient ischemic attack (TIA), and cerebral infarction without residual deficits; Z86.718 Personal history of other venous thrombosis and embolism; Z79.01 Long term (current) use of anticoagulants; Z79.4 Long term (current) use of insulin; Z79.84 Long term (current) use of oral hypoglycemic drugs; Z79.02 Long term (current) use of antithrombotics/antiplatelets; Z79.899 Other long term (current) drug therapy; Z95.5 Presence of coronary angioplasty implant and graft; Z90.49 Acquired absence of other specified parts of digestive tract; Z98.890 Other specified postprocedural states
CPT/HCPCS: 36415; 70450; 71046; 71275; 72125; 74174; 76937; 80048; 80053; 80320; 81001; 82010; 82550; 82803; 82947; 83036; 83605; 83735; 83880; 84100; 84443; 84484; 85014; 85018; 85025; 85027; 85049; 85520; 85610; 85730; 87040; 92526; 92610; 93005; 93010; 93306; 93970; 96361; 96365; 96366; 96367; 96368; 96375; 96376; 97110; 97161; 97165; 97530; 97535; 99152; 99285-25; A9270; C1769; C1880; G0378; J0295; J0456; J0696; J1171; J1644; J1815; J2250; J2405; J3010; J3475; J7030; J7042; J7050; P9047; Q9967